=== PATIENT | female | born 1970 | race Caucasian/White ===

== ENCOUNTER 2019-08-06 08:26 | Outpatient (CLI) | payer BC, SELFPAY ==
[2019-08-07 12:03] LABS: COVID-19 RT-PCR UVMMC Result Negative (Negative)
== END 2019-08-06 08:46 ==
PROVIDERS: PCP Physician Assistant Medical; Visit Provider Orthopaedic Surgery
DX: Z11.59 Encounter for screening for other viral diseases (principal); Z01.818 Encounter for other preprocedural examination
CPT/HCPCS: U0003

== ENCOUNTER 2019-08-09 08:29 | Day surgery (SDC) | payer BC, SELFPAY ==
[2019-08-09 08:30] VITALS: BP 106/66; PULSE 62; RESP 16; TEMP 36.4; O2SAT 100
[2019-08-09] MEDS: Lactated Ringers 1,000 ML 80 ML IV (09:20)
[2019-08-09] MEDS: ceFAZolin 1 GM/50 ML BAG IVPB (10:38)
--- NOTE | 2019-08-09 11:03 | PDOC.DSDIS_ITS ---
Discharge Plan Disposition Patient Disposition: HOME Condition: Good Discharge Details Reason For Visit: (L) ECTR Attending Provider: Tenzin Napoles Primary Care Provider: Florencia Henson Home Meds and New Rx's Prescriptions: New hydrocodone-acetaminophen 5-325 mg tablet 1 tab PO Q6H PRN (Reason: pain) Qty: 7 RF: 0 Continued olopatadine [Patanol] 0.1 % drops 1 drp OP DAILY RF: 0 Discharge Instructions Additional Instructions: Elevate L hand above heart level as much as possible overnite tonite. Wiggle fingers L hand 10 times/hour when awake to prevent swelling. Take ibuprofen or tylenol for mild pain. Take hydrocodone for breakthru pain, if needed. After 48 hours, remove splint AND dressings and begin to move L wrist. May then shower and get incision wet. Leave incision uncovered when it is dry and sealed. May use L hand as much as your discomfort allows. Follow up with in 2 weeks. Referrals: Tenzin Napoles MD [ [facility] STAFF PHYSICIAN] - (f/u in 2 weeks) Equipment/Supplies: Splint Activity:: Activity as Tolerated Remove Dressings/Wound Care:: 48 hours Shower/Bathe:: 48 hours Diet:: As Tolerated Discharge Orders Discharge Orders: Discharge Order (Routine); Ordered 08/09/19 Ordered By: Tenzin Napoles DS: Diagnosis Discharge Diagnosis (1) Bilateral carpal tunnel syndrome: Status: Acute
[2019-08-09 11:25] VITALS: BP 125/76; PULSE 56; RESP 16; TEMP 36.2; O2SAT 99
--- NOTE | 2019-08-09 15:31 | W.PM.OP ---
Date of service: 08/09/19 Time of Service: 15:31 Operative Note Operative Note DATE OF PROCEDURE: 08/09/19 PRE-OP DIAGNOSIS: Carpal tunnel syndrome left POST-OP DIAGNOSIS: same PROCEDURE: Endoscopic carpal tunnel release left SURGEON: Tenzin Napoles ANESTHESIA: regional PATHOLOGY: none sent TOURNIQUET TIME: 20 COMPLICATIONS: None Patient was transported to: same day Patient's condition: stable Indications: Is a 48-year-old white female with bilateral carpal tunnel syndrome. Her symptoms are no longer respond to conservative treatment. Bilateral carpal tunnel releases have been advised. Patient prefers to do them sequentially rather than simultaneously. Left is bothering her a little bit more so she wants that side done first. Risk complication procedure explained to patient detail preop. Procedure Description: Patient to the operating room on 08/09/2019 play supine operative table in a IV regional anesthetic was administered to the left upper extremity. Once good anesthesia was obtained the left hand wrist and forearm were prepped and draped in usual sterile fashion. Incision was made in line with the proximal flexion crease of the wrist. Incision began of the flexor carpi radialis and extended to flexor carpi ulnaris. The incision was carried down to the fascia. Subcutaneous veins were cauterized. A distally based fascial flap was then created to gain access to the carpal canal. Synovial reflector was then used to free up any soft tissue attachments to the undersurface of the volar carpal ligament. Series of obturators were then inserted to make room for the endoscope. The Manuel endoscope blade device was then inserted in the canal with and advanced until he distal edge of LIGAMENT was clearly visualized. Care was taken to position the endoscope against the hook of the hamate. When the distal edge was clearly visualized I depressed the trigger elevating ablate. The elevated blade was then brought out from distal to proximal to the incision transecting the volar carpal ligament. The blade was lowered and the endoscope was then inserted in the carpal canal so I could visualize the median nerve falling into the defect created by transecting the volar carpal ligament. This point the wound margins were. .5% Marcaine with epinephrine epinephrine solution. A median nerve block was performed 0.5% Marcaine. Wound was irrigated with saline solution. The wound margins were well approximated with 2 horizontal mattress sutures using 4-0 nylon suture material. Wounds dressed with Xeroform gauze sterile gauze 4 x 4's wrapped with a 4 inch Kerlix bandage and then wrapped in Naseem bandage. A commercial cock up wrist plate was applied over the dressings. Patient's IV regional anesthesia was reversed without complication. She was discharged to recovery room in good condition. Patient was discharged home from the surge unit when fully recovered from her IV regional anesthesia. She is given instructions to elevate her left wrist above heart levels once possible next 48 hours. She is encouraged to wiggle her fingers 10 times an hour while awake to prevent swelling. She is to remove the dressings and splint after 48 hours and begin to move her left wrist. She may then shower and get her incision wet. She can leave the incision uncovered when it is dry and sealed. She may use her left arm as much as discomfort allows. She has been given a prescription for breakthrough pain of oxycodone with APAP 1 tab every 6 hours as needed. She will take ibuprofen or Tylenol for mild pain. Should follow-up with Dr. Napoles in 2 weeks.
== END 2019-08-09 11:40 | disposition home or self-care (01) ==
PROVIDERS: PCP Physician Assistant Medical; Visit Provider Orthopaedic Surgery
PROC: 01N54ZZ Release Median Nerve, Percutaneous Endoscopic Approach (ICD-10-PCS; CPT 29848; principal; 2019-08-09 10:45)
DX: G56.02 Carpal tunnel syndrome, left upper limb (principal)
CPT/HCPCS: 29848; J0690; J1885; L3908

== ENCOUNTER 2019-08-23 06:19 | Day surgery (SDC) | payer BC, SELFPAY ==
--- NOTE | 2019-08-22 22:35 | W.PREOPHP ---
Date of service: 08/23/19 Assessment and Plan Assessment and plan (1) Bilateral carpal tunnel syndrome: Status: Acute Assessment and plan: Right ECTR. Details of surgery were discussed with patient as well as risks and pertinent anatomy. All questions were answered. History of Present Illness History of Present Illness Chief Complaint: Right hand pain and numbness Narrative: Leanne is a 48-year-old female who comes in today for a right ECTR. She had a left ECTR about 2 weeks ago and is doing well. She has had carpal tunnel syndrome symptoms in both hands for multiple years now, but they have gotten worse over the last 7-8 months. Her left hand was most symptomatic, so she elected to have her left wrist ECTR first. She is right-hand dominant, and this was released symptomatic wrist at the time. She continues to have pain and numbness especially with activities including work. Conservative treatment including braces have only helped minimally, but have not significantly improved her symptoms. At this point, she would like to move forward with her right ECTR. Pertinent Surgical Information Patient denies history of hypertension, CVA, RI, angina, asthma, COPD, renal or liver disorders, hepatitis, bleeding disorders, diabetes, immune or thyroid disorders. No complications from anesthesia. Review of Systems Constitutional Constitutional: Denies fever(s) ENT Ears, Nose, Mouth, and Throat: Denies dizziness and Denies sore throat Cardiovascular Cardiovascular: Denies chest pain, Denies palpitations and Denies dyspnea Respiratory Respiratory: Denies cough and Denies dyspnea Gastrointestinal Gastrointestinal: Denies abdominal pain, Denies melena, Denies hematochezia, Denies diarrhea, Denies nausea and Denies vomiting Genitourinary Genitourinary: Denies hematuria and Denies dysuria Neurologic Neurologic: Denies dizziness Endocrine Endocrine: Denies palpitations [facility] Medical History Bilateral carpal tunnel syndrome (Acute) Low back pain (Acute) Surgical History (Updated 08/23/19 @ 06:45 by Fang Guerrero RN) History of tubal ligation (Chronic) Hx of section (Chronic) Social History Smoking/Tobacco Use Status: Never Alcohol Intake: current Alcohol Intake frequency: holidays/special occasions only Alcohol type: wine and hard liquor Drug use: Never Substance use type: does not use current occupation: legal support assistant Do you feel safe at home: Yes Do you feel safe in your relationship?: Yes Meds Home Medications and Allergies Home Medications Medication Instructions Recorded Confirmed Type olopatadine 0.1 % eye drops 1 drp OP DAILY ml 05/20/19 08/23/19 History Allergies Allergy/AdvReac Type Severity Reaction Status Date / Time ketoconazole Allergy Severe Verified 08/23/19 06:46 Exam Const General: cooperative and no acute distress Orientation: alert and awake [facility] Head: normocephalic and atraumatic General nose exam: no nasal discharge Eyes Conjunctivae: conjunctivae normal Sclera: sclerae normal Resp Effort & Inspection: normal respiratory effort Auscultation: clear to auscultation bilaterally and no wheezes Cardio Rate: regular rate Rhythm: regular rhythm Heart Sounds: S1 normal, S2 normal and no murmurs GI Palpation: soft, no hepatosplenomegaly and nontender Auscultation: normal bowel sounds
[2019-08-23 06:25] VITALS: BP 116/78; PULSE 76; RESP 18; TEMP 36.4; O2SAT 99
[2019-08-23] MEDS: Lactated Ringers 1,000 ML 80 ML IV (06:50)
[2019-08-23] MEDS: ceFAZolin 1 GM/50 ML BAG IVPB (07:35)
--- NOTE | 2019-08-23 08:15 | W.PM.DSUDISC ---
Discharge Plan Disposition Patient Disposition: HOME Condition: Good Discharge Details Reason For Visit: R ECTR Attending Provider: Tenzin Napoles Primary Care Provider: Florencia Henson Home Meds and New Rx's Prescriptions: No Action olopatadine [Patanol] 0.1 % drops 1 drp OP DAILY RF: 0 Discharge Instructions Additional Instructions: Elevate R hand above heart level as much as possible overnite tonite. Wiggle fingers R hand 10 times/hour when awake to prevent swelling. Remove splint and dressings in 48 hours and begin to move R wrist. May shower and get incision wet after you remove the dressings in 48 hours. Leave incision uncovered when it is dry and sealed. Use R hand as much as your discomfort allows. Take tylenol or ibuprofen for pain. Follow up with in 2 weeks. Referrals: Tenzin Napoles MD [ [facility] STAFF PHYSICIAN] - (f/u in 2 weeks.) Equipment/Supplies: Splint Activity:: Activity as Tolerated Remove Dressings/Wound Care:: 48 hours Shower/Bathe:: 48 hours Diet:: As Tolerated Discharge Orders Discharge Orders: Discharge Order (Routine); Ordered 08/23/19 Ordered By: Tenzin Napoles DS: Diagnosis Discharge Diagnosis (1) Bilateral carpal tunnel syndrome: Status: Acute
[2019-08-23 08:42] VITALS: BP 116/78; PULSE 76; RESP 18; TEMP 36.4; O2SAT 99
--- NOTE | 2019-08-23 15:29 | W.PM.OP ---
Date of service: 08/23/19 Time of Service: 15:29 Operative Note Operative Note DATE OF PROCEDURE: 08/23/19 PRE-OP DIAGNOSIS: Carpal tunnel syndrome right POST-OP DIAGNOSIS: same PROCEDURE: Right E CTR SURGEON: Tenzin Napoles ANESTHESIA: regional PATHOLOGY: none sent TOURNIQUET TIME: 24 COMPLICATIONS: None Patient was transported to: same day Patient's condition: stable Indications: Is a 48-year-old white female longstanding bilateral carpal tunnel syndrome. She underwent an E CTR on the left 2 weeks ago with excellent results. She now presents for the same procedure on the right side. The risk and complication procedure explained patient detail preop. Procedure Description: Patient taken the operating room on 08/23/2019 she is very supine operating table. IV regional anesthetic was administered the right upper extremity. Right hand wrist and forearm were then prepped and draped in usual sterile fashion. Incision was made in line with the proximal flexion crease of the wrist beginning of the flexor carpi radialis tendon and extending to the flexor carpi ulnaris tendon. Incision was carried down through the skin to the fascia. Subcutaneous veins were cauterized. A distally based fascial flap was then developed to gain access to the carpal canal. Synovial reflector was then used to strip all soft tissue from the undersurface of all carpal ligament. Series of obturators were placed in the carpal canal to make room for the endoscope. The Manuel endoscope blade device was then inserted in the carpal canal. Care was taken to position the the endoscope on the ulnar side of the carpal canal. The endoscope was advanced until the distal edge of the volar carpal ligament was clearly visualized. At this point the trigger was depressed elevating the blade. The elevated blade was then brought out through the incision transecting the volar carpal ligament. The endoscope was then inserted again and the median nerve was visualized falling into the space created by transecting the volar carpal ligament. Using Littler scissors a fasciotomy was performed subcutaneously for about 2 inches proximal to the incision. The wound margins were protected 0.5% Marcaine with epinephrine solution. The median nerve block was performed 0.5% Marcaine solution. The wound was irrigated with saline solution the wound margins were approximated with 2 horizontal mattress sutures of 4-0 nylon suture material. Wounds dressed with Xeroform gauze sterile gauze 4 x 4's wrapped with a Kerlix bandage and then wrapped with an Naseem bandage. She is placed in a commercial cock-up wrist splint. The IV regional anesthesia without complications she was discharged to the day surgery in good condition. Patient was discharged home from day surgery unit and fully recovered from her IV regional anesthetic. She is given instructions to elevate her right hand above heart level as much as possible overnight tonight. She is encouraged to wiggle her fingers 10 times hourly weight prevent swelling. She is to keep her dressings and splint dry and intact for 48 hours. After 48 hours she is to remove her dressings and splint and begin to move her right wrist. She may then shower and get her incision wet. She leave the incision uncovered when is dry and sealed. She can use her right hand is much as discomfort allows. Should take ibuprofen or Tylenol for pain. She will follow-up with Dr. Napoles in 2 weeks.
== END 2019-08-23 08:42 | disposition home or self-care (01) ==
PROVIDERS: PCP Physician Assistant Medical; Visit Provider Orthopaedic Surgery
PROC: 01N54ZZ Release Median Nerve, Percutaneous Endoscopic Approach (ICD-10-PCS; CPT 29848; principal; 2019-08-23 07:30)
DX: G56.01 Carpal tunnel syndrome, right upper limb (principal)
CPT/HCPCS: 29848; NC; J0690; J1885; J2250; L3908

== ENCOUNTER 2019-08-30 09:57 | Emergency (ER) | payer BC, SELFPAY ==
[2019-08-30 10:14] VITALS: BP 118/69; PULSE 78; RESP 18; TEMP 37.2; O2SAT 98
--- NOTE | 2019-08-30 10:28 | W.ED.GENAD ---
Discharge Plan Disposition Patient Disposition: HOME Condition: Stable Discharge Details Chief Complaint: Orthopedic Clinical Impression: Superficial thrombophlebitis Primary Care Provider: Florencia Henson ED Provider: Torres Collado Home Meds and New Rx's Prescriptions: New amoxicillin-pot clavulanate [Augmentin] 875-125 mg tablet 1 tab PO BID Qty: 14 RF: 0 No Action olopatadine [Patanol] 0.1 % drops 1 drp OP DAILY RF: 0 Discharge Instructions Instructions: Superficial Thrombophlebitis (ED) Additional Instructions: you can take 81mg aspirin every 6 hours as needed for discomfort if you have severe worsening pain, fevers or feel more ill return to the emergency department Medical Decision Making 48 yo female had right carpal tunnel release a week ago and IV placed in dorsal left hand. Has had some pain and discomfort in area where IV was placed so came here. Has mild swelling of dorsum of hand with mild pain, no erythema or warmth, no crepitus, normal cap refill and pulses. Suspect superficial thrombophlebitis but will obtain u/s to eval for possible dvt pt prefers to start asapirin and antibiotics and returning for u/s as outpatient which I feel is reasonable given only local swelling to dorsum of hand. Will d/c with return precautions Differential Diagnosis Differential Diagnosis: superficial thrombophlebitis, dvt HPI General Mode of arrival: ambulatory. Date/Time Provider Initiated Documentation: 08/30/19 10:21. Limitations to Documentation: no limitations. Information obtained by: patient. History of Present Illness 48 year old F presents to the emergency department with the chief complaint of hand swelling pain, left, described as moderate, and it has been constant. No relieving factors improve symptom(s), No exacerbating factors reported . Patient did receive the following treatments prior to arrival, none Related Data Home Medications Medication Instructions Recorded Confirmed olopatadine 0.1 % eye drops 1 drp OP DAILY ml 05/20/19 08/30/19 amoxicillin-pot clavulanate 1 tab PO BID #14 tab 08/30/19 [Augmentin] Previous Rx's Medication Instructions Recorded amoxicillin-pot clavulanate 1 tab PO BID #14 tab 08/30/19 [Augmentin] Allergies Allergy/AdvReac Type Severity Reaction Status Date / Time ketoconazole Allergy Severe Verified 08/30/19 10:27 General Stated Complaint: Orthopedic DOROTHY: 4 Review of Systems All systems reviewed & are unremarkable except as noted in HPI and below Constitutional Constitutional: Denies chills, Denies fever(s) and Denies weakness Cardiovascular Cardiovascular: Denies chest pain and Denies dyspnea Respiratory Respiratory: Denies cough and Denies dyspnea Gastrointestinal Gastrointestinal: Denies abdominal pain, Denies nausea and Denies vomiting Neurologic Neurologic: Denies weakness Psychiatric Psychiatric: Denies depression [facility] Medical History (Updated 08/30/19 @ 10:53 by Torres Collado MD) Bilateral carpal tunnel syndrome (Acute) Low back pain (Acute) Surgical History (Updated 08/23/19 @ 06:45 by Fang Guerrero RN) History of tubal ligation (Chronic) Hx of section (Chronic) Social History Smoking/Tobacco Use Status: Never Alcohol Intake: current Alcohol Intake frequency: holidays/special occasions only Alcohol type: wine and hard liquor Drug use: Never Substance use type: does not use current occupation: complex commercial litigation paralegal Do you feel safe at home: Yes Do you feel safe in your relationship?: Yes Exam Const General: no acute distress Orientation: alert HENMT Head: normal to inspection Ears: external ears normal General nose exam: external nose normal Mouth: moist mucous membranes Eyes General: appearance normal, both eyes and all related structures Neck Neck: normal visual inspection Resp Effort & Inspection: normal respiratory effort and able to speak in complete sentences Cardio Rate: regular rate Skin General skin exam: no rashes or lesions noted Neuro General: patient alert and patient oriented x3 Extrem General: full ROM and capillary refill normal Psych Mental Status: mental status grossly normal Course Vital Signs Vital signs: Vital Signs Temperature 37.2 C 08/30/19 10:14 Pulse 78 08/30/19 10:14 Respiratory Rate 18 08/30/19 10:14 Blood Pressure 118/69 08/30/19 10:14 Pulse Oximetry 98 08/30/19 10:14 Temperature 37.2 C 08/30/19 10:14 Temperature Source Skin 08/30/19 10:14 Pulse 78 08/30/19 10:14 Respiratory Rate 18 08/30/19 10:14 Respiratory Effort Non-Labored 08/30/19 10:24 Blood Pressure 118/69 08/30/19 10:14 Pulse Oximetry 98 08/30/19 10:14 Oxygen Delivery Method Room Air 08/30/19 10:14 Oxygen Flow Rate 0 08/30/19 10:14 Pain Level 1 08/30/19 10:26 Comment 08/30/19 10:14
== END 2019-08-30 11:02 | disposition home or self-care (01) ==
PROVIDERS: Emergency Provider Emergency Medicine; PCP Physician Assistant Medical
DX: T81.72XA Complication of vein following a procedure, not elsewhere classified, initial encounter (principal); Y84.8 Other medical procedures as the cause of abnormal reaction of the patient, or of later complication, without mention of misadventure at the time of the procedure
CPT/HCPCS: 99283

== ENCOUNTER 2019-08-31 00:40 | Outpatient (CLI) | payer BC, SELFPAY ==
--- NOTE | 2019-08-31 10:30 | DI.US_ITS ---
EXAM: US UPPER EXTREMITY VENOUS LT CLINICAL HISTORY: RECENT IV PLACED,NOW SWELLING AND PAIN TECHNIQUE: Ultrasound performed using standard protocol. COMPARISON: No exams were available for comparison FINDINGS: Duplex evaluation of the deep venous system of the left upper extremity was performed according to e usual protocol. There is no evidence of deep venous thrombosis. No superficial thrombus identifie d in the upper arm.. A small superficial vein in forearm shows increased internal echoes which could represent localized superficial thrombophlebitis. IMPRESSION: No evidence of deep venous thrombosis. DATA REPOSITORY:
== END 2019-08-31 01:00 ==
PROVIDERS: PCP Physician Assistant Medical; Visit Provider Emergency Medicine
DX: R22.32 Localized swelling, mass and lump, left upper limb (principal); M79.602 Pain in left arm
CPT/HCPCS: 93971

== ENCOUNTER 2019-08-31 10:45 | Emergency (ER) | payer BC, SELFPAY ==
[2019-08-31 10:46] VITALS: BP 116/72; PULSE 68; RESP 18; TEMP 36.6; O2SAT 100
--- NOTE | 2019-08-31 10:51 | ED.GENADUL_ITS ---
Discharge Plan Disposition Patient Disposition: HOME Condition: Stable Discharge Details Chief Complaint: Recheck Clinical Impression: Superficial thrombophlebitis Primary Care Provider: Florencia Henson ED Provider: Shira Medrano Home Meds and New Rx's Prescriptions: Continued olopatadine [Patanol] 0.1 % drops 1 drp OP DAILY RF: 0 amoxicillin-pot clavulanate [Augmentin] 875-125 mg tablet 1 tab PO BID Qty: 14 RF: 0 Discharge Instructions Instructions: Superficial Thrombophlebitis (ED) Additional Instructions: Take the antibiotics until finished. Apply ice or heat to the affected area several times daily for 20 minutes at a time. Follow-up with your primary care doctor in 1 week as needed. Return to the emergency department with any worsening or new concerning symptoms. Discharge Data Discharge Date/Time-TO BE ENTERED AT DEPARTURE: 08/31/19 11:08 Discharge Physician: Shira Medrano Medical Decision Making 48-year-old female status post right carpal tunnel release requiring IV placement in left hand diagnosed with superficial thrombophlebitis yesterday presents for results of her Doppler ultrasound to rule out DVT. Ultrasound negative. Left hand hematoma appears faint and resolving. No signs of cellulitis. Neurov ascular intact. Advised to finish the antibiotics prescribed yesterday. Advised on the importance of alternating ice and heat. Advised to follow up with the primary care doctor for re-evaluation as needed. Usual and customary return precautions given prior to discharge. Imaging Data Radiologic Study: Radiologist's impression: US UPPER EXTREMITY VENOUS LT CLINICAL HISTORY: RECENT IV PLACED,NOW SWELLING AND PAIN TECHNIQUE: Ultrasound performed using standard protocol. COMPARISON: No exams were available for comparison FINDINGS: Duplex evaluation of the deep venous system of the left upper extremity was performed according to the usual protocol. There is no evidence of deep venous thrombosis. No superficial thrombus identified in the upper arm.. A small superficial vein in forearm shows increased internal echoes which could represent localized superficial thrombophlebitis. IMPRESSION: No evidence of deep venous thrombosis. HPI General Mode of arrival: ambulatory . Date/Time Provider Initiated Documentation: 08/31/19 10:47 . Limitations to Documentation: no limitations . Information obtained by: patient . HPI Narrative: Patient is a 48-year-old female status post IV placement to left hand at time of right carpal tunnel release with Dr. Napoles last week seen here yesterday and diagnosed with superficial thrombophlebitis and referred for outpatient Doppler ultrasound of left upper extremity rule out DVT presents for results of ultrasound. Ultrasound read as negative per radiology. Patient states her symptoms of left hand swelling and bruising are improving. She denies any fever or significant pain. Related Data Home Medications Medication Instructions Recorded Confirmed olopatadine 0.1 % eye drops 1 drp OP DAILY ml 05/20/19 08/31/19 amoxicillin-pot clavulanate 1 tab PO BID #14 tab 08/30/19 08/31/19 [Augmentin] Previous Rx's Medication Instructions Recorded amoxicillin-pot clavulanate 1 tab PO BID #14 tab 08/30/19 [Augmentin] Allergies Allergy/AdvReac Type Severity Reaction Status Date / Time ketoconazole Allergy Severe Verified 08/31/19 10:50 General Stated Complaint: Recheck DOROTHY: 5 Review of Systems All systems reviewed & are unremarkable except as noted in HPI and below Constitutional Constitutional: Reports as per HPI, Denies chills and Denies fever(s) Eyes Eyes: Denies blurry vision ENT Ears, Nose, Mouth, and Throat: Denies dizziness, Denies sore throat and Denies throat swelling Cardiovascular Cardiovascular: Denies chest pain and Denies dyspnea Respiratory Respiratory: Denies cough and Denies dyspnea Gastrointestinal Gastrointestinal: Denies abdominal pain, Denies diarrhea and Denies vomiting Genitourinary Genitourinary: Denies hematuria and Denies dysuria Musculoskeletal Musculoskeletal: Denies back pain and Denies numbness Integumentary/Breasts Skin/Breast: Denies lesions and Denies rash Neurologic Neurologic: Denies dizziness, Denies localized weakness and Denies numbness Allergic/Immunologic Allergic/Immunologic: Denies throat swelling COUNTS INCLUDE 234 BEDS AT THE [facility] Medical History (Updated 08/31/19 @ 11:05 by Shira Medrano DO) Bilateral carpal tunnel syndrome (Acute) Low back pain (Acute) Surgical History (Updated 08/23/19 @ 06:45 by Fang Guerrero RN) History of tubal ligation (Chronic) Hx of section (Chronic) Social History Smoking/Tobacco Use Status: Never Alcohol Intake: current Alcohol Intake frequency: holidays/special occasions on ly Alcohol type: wine and hard liquor Drug use: Never Substance use type: does not use current occupation: corporate legal assistant Do you feel safe at home: Yes Do you feel safe in your relationship?: Yes Exam Const General: cooperative, healthy appearing and no acute distress HENMS Head: normal to inspection Mouth: oral mucosae normal Eyes General: appearance normal, both eyes and all related structures Neck Neck: normal visual inspection Resp Effort & Inspection: normal respiratory effort and able to speak in complete sentences Cardio Rate: regular rate Skin General skin exam: no rashes or lesions noted Neuro General: patient alert, patient awake and patient oriented x3 Motor: muscle tone normal throughout Extrem Hand/finger images: 1. Faint hematoma. No tenderness, fluctuance, induration, erythema. Other: B/l radial pulses intact. Psych Appearance: grossly normal Affect: normal affect Course Vital Signs Vital signs: Vital Signs Temperature 97.9 F 08/31/19 10:46 Pulse 68 08/31/19 10:46 Respiratory Rate 18 08/31/19 10:46 Blood Pressure 116/72 08/31/19 10:46 Pulse Oximetry 100 08/31/19 10:46 Temperature 97.9 F 08/31/19 10:46 Temperature Source Temporal Artery Scan 08/31/19 10:46 Pulse 68 08/31/19 10:46 Respiratory Rate 18 08/31/19 10:46 Respiratory Effort Non-Labored 08/31/19 10:50 Blood Pressure 116/72 08/31/19 10:46 Blood Pressure Position Sitting 08/31/19 10:46 Pulse Oximetry 100 08/31/19 10:46 Oxygen Delivery Method Room Air 08/31/19 10:46 Oxygen Flow Rate 0 08/31/19 10:46
== END 2019-08-31 11:08 | disposition home or self-care (01) ==
LOC: ER 11:08
PROVIDERS: Emergency Provider Physician Assistant; PCP Physician Assistant Medical
DX: T81.72XA Complication of vein following a procedure, not elsewhere classified, initial encounter (principal); Y84.8 Other medical procedures as the cause of abnormal reaction of the patient, or of later complication, without mention of misadventure at the time of the procedure; Z71.2 Person consulting for explanation of examination or test findings

== ENCOUNTER 2020-08-02 10:08 | Outpatient (REF) | payer BC, SELFPAY ==
[2020-08-02 15:42] LABS: Abs Immature Grans 0.02 10^3/uL (0.0-0.06); Absolute Basophil Count 0.03 10^3/uL (0.0-0.2); Absolute Eosinophil Count 0.09 10^3/uL (0.0-0.7); Absolute Lymphocyte Count 1.03 10^3/uL (1.2-3.4); Absolute Neutrophil Count 4.29 10^3/uL (1.2-6.7); Basophils % 0.5; Eosinophils % 1.4; HCT 38.1 % (36.0-46.0); HGB 12.5 g/dL (11.2-15.7); Immature Grans % 0.3; Lymphocytes % 16.2; MCH 30.3 pg (27.0-33.0); MCHC 32.8 % (32.0-36.0); MCV 92.5 fL (80-95); MPV 12.2 fL (8.0-11.0); Monocytes % 14.2; Neutrophils % 67.4; Nucleated RBC 0 %; Platelet Count 248 10^3/uL (130-400); RBC 4.12 10^6/uL (3.93-5.22); RDW 12.7 % (11.7-14.6); RDW-SD 43.4 fL; WBC 6.36 10^3/uL (4.4-10.8)
[2020-08-02 15:46] LABS: ESR 27 mm/hr (0-20)
[2020-08-02 15:57] LABS: C-Reactive Protein 0.31 mg/dL (0.0-0.3)
[2020-08-03 09:06] LABS: Cyclic Citrullinated Peptide 133.9 U/mL (<5.0)
[2020-08-03 09:47] LABS: Lyme Ab w Rflx to Lyme Confirm Negative (Negative)
[2020-08-03 13:36] LABS: Uric Acid 2.3 mg/dL (2.6-6.0)
[2020-08-05 09:25] LABS: Anaplasma phagocytophilum Negative (Negative); B. miyamotoi PCR Negative (Negative); Babesia divergens/MO-1 Negative (Negative); Babesia duncani Negative (Negative); Babesia microti Negative (Negative); Ehrlichia chaffeensis Negative (Negative); Ehrlichia ewingii/canis Negative (Negative); Ehrlichia muris eauclairensis Negative (Negative)
== END 2020-08-02 10:09 | disposition home or self-care (01) ==
LOC: NCHCN 10:08
PROVIDERS: PCP Physician Assistant Medical; Visit Provider Physician Assistant Medical
DX: M25.561 Pain in right knee (principal); M25.562 Pain in left knee
CPT/HCPCS: 85652; 86200; 87798; 84550; 85025; 86140; 86618

== ENCOUNTER 2020-08-29 10:59 | Outpatient (CLI) | payer BC, SELFPAY ==
--- NOTE | 2020-08-29 10:30 | DI.RAD_ITS ---
Exam(s) XR KNEE LT 3V AP,LAT,JOSELIN EXAM: XR KNEE LT 3V AP,LAT,JOSELIN CLINICAL HISTORY: left knee pain TECHNIQUE: COMPARISON: No exams were available for comparison FINDINGS: Three views were obtained. The cartilaginous joint spaces appear fairly well maintained. No bony or soft tissue abnormality seen. No gross knee joint effusion seen lateral view. IMPRESSION: RADIATION DOSE DELIVERED: Total DLP
== END 2020-08-29 11:00 | disposition home or self-care (01) ==
LOC: DIORS 11:00
PROVIDERS: PCP Physician Assistant Medical; Referring Provider Physician Assistant Medical; Visit Provider Student in an Organized Health Care Education/Training Program
DX: M25.562 Pain in left knee (principal)
CPT/HCPCS: 73562

== ENCOUNTER 2020-09-13 15:18 | Outpatient (REF) | payer BC, SELFPAY ==
[2020-09-13 15:20] LABS: BUN 12 mg/dL (7-18); CREATININE 0.7 mg/dL (0.55-1.02); Calcium 10.5 mg/dL (8.5-10.1); Calculated LDL 173 mg/dL (<100); Chloride 103 mmol/L (98-107); Cholesterol 289 mg/dL (<200); Glucose 94 mg/dL (74-106); HDL Cholesterol 94 mg/dL (40-60); Potassium 4.5 mmol/L (3.5-5.1); Sodium 140 mmol/L (136-145); TSH (W/Ref FT4) 1.45 uIU/mL (0.36-3.74); Triglyceride 112 mg/dL (<150)
== END 2020-09-13 15:19 | disposition home or self-care (01) ==
LOC: NCHCN 15:18
PROVIDERS: PCP Physician Assistant Medical; Visit Provider Physician Assistant Medical
DX: Z00.00 Encounter for general adult medical examination without abnormal findings (principal)
CPT/HCPCS: 80048; 80061; 84443

== ENCOUNTER 2020-10-31 05:12 | Outpatient (CLI) | payer BC, SELFPAY ==
[2020-10-31 16:37] LABS: Abs Immature Grans 0.01 10^3/uL (0.0-0.06); Absolute Basophil Count 0.06 10^3/uL (0.0-0.2); Absolute Eosinophil Count 0.12 10^3/uL (0.0-0.7); Absolute Lymphocyte Count 2.23 10^3/uL (1.2-3.4); Absolute Monocyte Count 0.82 10^3/uL (0.1-0.8); Absolute Neutrophil Count 4.17 10^3/uL (1.2-6.7); Basophils % 0.8; Eosinophils % 1.6; HCT 38.1 % (36.0-46.0); HGB 12.6 g/dL (11.2-15.7); Immature Grans % 0.1; Lymphocytes % 30.1; MCH 29.9 pg (27.0-33.0); MCHC 33.1 % (32.0-36.0); MCV 90.3 fL (80-95); MPV 10.7 fL (8.0-11.0); Monocytes % 11.1; Neutrophils % 56.3; Nucleated RBC 0 %; Platelet Count 266 10^3/uL (130-400); RBC 4.22 10^6/uL (3.93-5.22); RDW 13.3 % (11.7-14.6); RDW-SD 43.5 fL; WBC 7.41 10^3/uL (4.4-10.8)
[2020-10-31 17:22] LABS: ALT 33 U/L (14-59); AST 38 U/L (15-37); CREATININE 0.8 mg/dL (0.55-1.02)
== END 2020-10-31 05:13 | disposition home or self-care (01) ==
LOC: LBO 05:12
PROVIDERS: PCP Physician Assistant Medical; Visit Provider Internal Medicine Rheumatology
DX: M05.9 Rheumatoid arthritis with rheumatoid factor, unspecified (principal)
CPT/HCPCS: 36415; 82565; 84450; 84460; 85025

== ENCOUNTER 2021-02-12 03:06 | Outpatient (CLI) | payer BC, SELFPAY ==
[2021-02-12 16:41] LABS: Abs Immature Grans 0.01 10^3/uL (0.0-0.06); Absolute Basophil Count 0.07 10^3/uL (0.0-0.2); Absolute Eosinophil Count 0.21 10^3/uL (0.0-0.7); Absolute Lymphocyte Count 1.32 10^3/uL (1.2-3.4); Absolute Monocyte Count 0.67 10^3/uL (0.1-0.8); Absolute Neutrophil Count 1.79 10^3/uL (1.2-6.7); Basophils % 1.7; Eosinophils % 5.2; HCT 37.5 % (36.0-46.0); HGB 11.7 g/dL (11.2-15.7); Immature Grans % 0.2; Lymphocytes % 32.4; MCH 29.1 pg (27.0-33.0); MCHC 31.2 % (32.0-36.0); MCV 93.3 fL (80-95); MPV 10.6 fL (8.0-11.0); Monocytes % 16.5; Nucleated RBC 0 %; Platelet Count 207 10^3/uL (130-400); RBC 4.02 10^6/uL (3.93-5.22); RDW 13.1 % (11.7-14.6); RDW-SD 44.8 fL; WBC 4.07 10^3/uL (4.4-10.8)
[2021-02-12 17:40] LABS: ALT 67 U/L (14-59); AST 78 U/L (15-37); Albumin 3.7 g/dL (3.4-5.0); Alkaline Phosphatase 206 U/L (46-116); Anion Gap 7.1 mmol/L (3-11); BUN 8 mg/dL (7-18); Bilirubin, Total 0.6 mg/dL (0.2-1.0); CO2 27.9 mmol/L (21.0-32.0); CREATININE 0.6 mg/dL (0.55-1.02); Calcium 9.9 mg/dL (8.5-10.1); Chloride 99 mmol/L (98-107); Glucose 113 mg/dL (74-106); Potassium 3.8 mmol/L (3.5-5.1); Sodium 134 mmol/L (136-145)
== END 2021-02-12 03:07 | disposition home or self-care (01) ==
LOC: LBO 03:06
PROVIDERS: PCP Physician Assistant Medical; Visit Provider Physician Assistant
DX: Z51.81 Encounter for therapeutic drug level monitoring (principal)
CPT/HCPCS: 36415; 80053; 85025

== ENCOUNTER 2022-01-08 03:28 | Outpatient (CLI) | payer BC, SELFPAY ==
[2022-01-08 12:49] LABS: Abs Immature Grans 0.02 10^3/uL (0.0-0.06); Absolute Basophil Count 0.05 10^3/uL (0.0-0.2); Absolute Eosinophil Count 0.08 10^3/uL (0.0-0.7); Absolute Monocyte Count 1.16 10^3/uL (0.1-0.8); Absolute Neutrophil Count 4.92 10^3/uL (1.2-6.7); Basophils % 0.6; HCT 35.2 % (36.0-46.0); HGB 11.3 g/dL (11.2-15.7); Immature Grans % 0.3; Lymphocytes % 20.4; MCH 26.7 pg (27.0-33.0); MCHC 32.1 % (32.0-36.0); MCV 83 fL (80-95); MPV 9.6 fL (8.0-11.0); Monocytes % 14.8; Neutrophils % 62.9; Platelet Count 325 10^3/uL (130-400); RBC 4.24 10^6/uL (3.93-5.22); RDW 14.4 % (11.7-14.6); RDW-SD 43.1 fL; WBC 7.83 10^3/uL (4.4-10.8)
[2022-01-08 12:50] LABS: ESR 57 mm/hr (0-30)
[2022-01-08 14:21] LABS: ALT 32 U/L (14-59); AST 34 U/L (15-37); Albumin 3.3 g/dL (3.4-5.0); Alkaline Phosphatase 165 U/L (46-116); Anion Gap 9.1 mmol/L (3-11); BUN 9 mg/dL (7-18); Bilirubin, Total 0.5 mg/dL (0.2-1.0); C-Reactive Protein 3.16 mg/dL (0.0-0.3); CO2 26.9 mmol/L (21.0-32.0); CREATININE 0.7 mg/dL (0.55-1.02); Calcium 10.3 mg/dL (8.5-10.1); Chloride 101 mmol/L (98-107); Estimated GFR 104.65 (mL/min/1.73m2); Glucose 114 mg/dL (74-106); Potassium 3.6 mmol/L (3.5-5.1); Sodium 137 mmol/L (136-145); Total Protein 8.3 g/dL (6.4-8.2)
[2022-01-10 13:36] LABS: ANA Interpretation Positive (Negative); ANA Titer Pattern 1:320 Homogeneous
[2022-01-10 13:59] LABS: dsDNA Ab, IgG 14.1 IU/mL (<30.0)
[2022-01-10 14:34] LABS: Hepatitis B Surface Ag Negative (Negative)
[2022-01-10 14:52] LABS: Hepatitis C Ab w Rflx HCV PCR Negative (Negative)
[2022-01-10 15:17] LABS: RNP Ab, IgG 1.6 Units (<20.0); SS-A Antibody 1.1 Units (<20.0); SS-B (La) Ab, IgG 2.3 Units (<20.0); Sm (Smith) Ab, IgG 2.2 Units (<20.0)
[2022-01-11 11:19] LABS: Hepatitis B Surface Ab Positive (See Note)
[2022-01-11 11:59] LABS: Hep B Core Antibody Negative (Negative)
== END 2022-01-08 03:29 | disposition home or self-care (01) ==
LOC: LBO 03:28
PROVIDERS: PCP Physician Assistant Medical; Visit Provider Physician Assistant
DX: Z51.81 Encounter for therapeutic drug level monitoring (principal)
CPT/HCPCS: 36415; 80053; 85652; 86704; 86706; 86803; 87340; 85025; 86038; 86140; 86225; 86235

== ENCOUNTER 2022-03-05 03:59 | Outpatient (CLI) | payer BC, SELFPAY ==
[2022-03-05 16:46] LABS: Abs Immature Grans 0.04 10^3/uL (0.0-0.06); Absolute Basophil Count 0.05 10^3/uL (0.0-0.2); Absolute Eosinophil Count 0.15 10^3/uL (0.0-0.7); Absolute Lymphocyte Count 2.22 10^3/uL (1.2-3.4); Absolute Monocyte Count 1.03 10^3/uL (0.1-0.8); Absolute Neutrophil Count 3.72 10^3/uL (1.2-6.7); Basophils % 0.7; Eosinophils % 2.1; HCT 31.8 % (36.0-46.0); HGB 9.7 g/dL (11.2-15.7); Immature Grans % 0.6; Lymphocytes % 30.8; MCH 25.3 pg (27.0-33.0); MCHC 30.5 % (32.0-36.0); MCV 83 fL (80-95); MPV 9.2 fL (8.0-11.0); Monocytes % 14.3; Neutrophils % 51.5; Platelet Count 405 10^3/uL (130-400); RBC 3.83 10^6/uL (3.93-5.22); RDW 13.8 % (11.7-14.6); RDW-SD 41.8 fL; WBC 7.21 10^3/uL (4.4-10.8)
[2022-03-05 17:28] LABS: ALT 21 U/L (14-59); AST 27 U/L (15-37); Albumin 2.9 g/dL (3.4-5.0); Alkaline Phosphatase 132 U/L (46-116); Anion Gap 4.4 mmol/L (3-11); BUN 10 mg/dL (7-18); Bilirubin, Total 0.2 mg/dL (0.2-1.0); CO2 30.6 mmol/L (21.0-32.0); CREATININE 0.7 mg/dL (0.55-1.02); Calcium 9.7 mg/dL (8.5-10.1); Chloride 105 mmol/L (98-107); Estimated GFR 104.65 (mL/min/1.73m2); Glucose 83 mg/dL (74-106); Potassium 3.9 mmol/L (3.5-5.1); Sodium 140 mmol/L (136-145); Total Protein 7.1 g/dL (6.4-8.2)
[2022-03-08 12:37] LABS: RNP Ab, IgG 1.7 Units (<20.0); SS-A Antibody 1.1 Units (<20.0); SS-B (La) Ab, IgG 3.8 Units (<20.0); Sm (Smith) Ab, IgG 2.2 Units (<20.0)
== END 2022-03-05 04:00 | disposition home or self-care (01) ==
PROVIDERS: PCP Physician Assistant Medical; Visit Provider Physician Assistant
DX: Z51.81 Encounter for therapeutic drug level monitoring (principal)
CPT/HCPCS: 36415; 80053; 85025; 86235

== ENCOUNTER 2022-04-08 02:01 | Outpatient (CLI) | payer BC, SELFPAY ==
--- NOTE | 2022-04-08 | DI.MAMMO_ITS ---
Exam(s) MAMMO SCREENING EXAM: MAMMO SCREENING CLINICAL HISTORY: SCREENING, Z12.31 TECHNIQUE: Bilateral full field digital CC and MLO mammographic images were obtained with 3D tomosyn thesis and utilizing computer aided detection (CAD). COMPARISON: None. FINDINGS: Masses/Architectural Distortion: There is a well-circumscribed ovoid nodule in the upper outer quadra nt of the left breast measuring 5 mm. It is 5.5 cm from the nipple. Microcalcifications: No suspicious pleomorphic-type are seen. Skin Thickening/Nipple Retraction: None. IMPRESSION: 1. 5 mm nodule in the left breast as described above. 2. This area should be further evaluated with spot compression view. A limited left breast ultrasoun d should also be obtained at that time. BI-RADS Category 0 - Assessment Incomplete: Need additional imaging evaluation Breast Density - Category C - Heterogeneously dense Breast density category C or D implies that the patient has dense breast tissue. Dense breast tissue is very common and is not abnormal but dense breast tissue can make it harder to find cancer on a ma mmogram. Also, dense breast tissue may increase their breast cancer risk. This information about the result of the mammogram report was provided to the patient to raise their awareness. Use this report when you speak with the patient about their risks for breast cancer, which includes their family hist ory. At that time, you may recommend for more screening tests (Ultrasound or MRI) as they might be us eful based on their risk. A negative radiographic report should not delay biopsy if a dominant or clinically suspicious mass is present. Up to ten percent of cancers are not identified on mammography. A negative report may reinforce clinical impression. Adenosis and dense breasts may obscure an underlying neoplasm. False positive reports average 6 to 10%. Patient will receive a letter notifying them of these results.
== END 2022-04-08 02:21 ==
LOC: DI 02:02
PROVIDERS: PCP Physician Assistant Medical; Visit Provider Physician Assistant Medical
DX: Z12.31 Encounter for screening mammogram for malignant neoplasm of breast (principal); R92.8 Other abnormal and inconclusive findings on diagnostic imaging of breast
CPT/HCPCS: 77063; 77067

== ENCOUNTER 2022-04-16 02:23 | Outpatient (CLI) | payer BC, SELFPAY ==
--- NOTE | 2022-04-16 | DI.US_ITS ---
Exam(s) MG MAMMO SCREEN CALL BACK UNI US BREAST LT COMPLETE EXAM: MG MAMMO SCREEN CALL BACK UN- LEFT AND COMPLETE LEFT BREAST ULTRASOUND CLINICAL HISTORY: F/U MAMMO, LT BREAST NODULE,R92.8. TECHNIQUE: Unilateral spot mammographic images obtained with 3D tomosynthesisand utilizing computer aided detection (CAD). . Complete LEFT breast Ultrasound was also performed, including all 4 quadrants, the retroareolar regio n, and the ipsilateral axilla. COMPARISON: Prior mammograms were reviewed. This additional imaging was performed due to findings described on the recent screening mammogram of 04/08/2022. FINDINGS: DIAGNOSTIC MAMMOGRAM: Additional mammographic views performed todayagain exhibit the previously described nodule. It does not dissipate. It appears to be superficial. However, patient does not a skin mole at this location . COMPLETE LEFT BREAST ULTRASOUND: Ultrasound performed today reveals multiple microcysts at the 1 o'clock position. The largest of the se measures 10 x 6 millimeters. There is also conglomeration of microcysts in this region also evide nt. At 3 o'clock position there is a 6 x 3 millimeter benign microcyst. At the 4 o'clock position there are 2 wider than taller microcysts. One measures 4 millimeters and the other measures 6 millimeters and appears mildly hemorrhagic. There are no additional ultrasound findings in all 4 quadrants. Scanning of the ipsilateral left axilla reveals no significant adenopathy. IMPRESSION: 1. Benign-appearing findings in left breast as described above. 2. Multiple benign-appearing microcysts evident on ultrasound. A few of these are located 4 o'clock position and 1 of these may correspond to the finding on the mammogram. However, the finding on the mammogram is by superficial but the patient does not appear to have a skin mole at location on physi marian examination. Appropriate follow-up as discussed by myself with the patient today is repeat left breast imaging in 6 months to include repeat mammogram and ultrasound. The patient was informed of these findings and recommendations prior to leaving the department today. BI-RADS Category 3 - 6 month - Probably Benign Finding: Recommend follow-up mammography in 6 months Breast Density - Category C - Heterogeneously dense Breast density Category C or D implies that the patient has dense breast tissue. Dense breast tissue can make it harder to find cancer on a mammogram. Dense breast tissue is also associated with an incr eased risk of breast cancer. This information about the result of the mammogram report was provided to the patient to raise their awareness. Use this report when you speak with the patient about their risks for breast cancer, which includes their family history. At that time, you may recommend additional screening tests (Ultrasoun d or MRI) as these tests may add significant information. A negative radiographic report should not delay biopsy if a dominant or clinically suspicious mass is present. Up to ten percent of cancers are not identified on mammography. A negative report may reinforce clinical impression. Adenosis and dense breasts may obscure an underlying neoplasm. False positive reports average 6 to 10%. Patient will receive a letter notifying them of these results.
== END 2022-04-16 02:43 ==
LOC: DI 02:24
PROVIDERS: PCP Physician Assistant Medical; Visit Provider Physician Assistant Medical
DX: Z12.31 Encounter for screening mammogram for malignant neoplasm of breast (principal); R92.8 Other abnormal and inconclusive findings on diagnostic imaging of breast
CPT/HCPCS: 76642; 77063; 77067

== ENCOUNTER 2022-05-06 02:42 | Outpatient (CLI) | payer BC, SELFPAY ==
[2022-05-06 15:33] LABS: Abs Immature Grans 0.02 10^3/uL (0.0-0.06); Absolute Basophil Count 0.06 10^3/uL (0.0-0.2); Absolute Eosinophil Count 0.11 10^3/uL (0.0-0.7); Absolute Lymphocyte Count 2.42 10^3/uL (1.2-3.4); Absolute Monocyte Count 0.98 10^3/uL (0.1-0.8); Absolute Neutrophil Count 3.14 10^3/uL (1.2-6.7); Basophils % 0.9; Eosinophils % 1.6; HCT 33.5 % (36.0-46.0); HGB 10.3 g/dL (11.2-15.7); Immature Grans % 0.3; MCH 25.1 pg (27.0-33.0); MCHC 30.7 % (32.0-36.0); MCV 82 fL (80-95); MPV 9.2 fL (8.0-11.0); Monocytes % 14.6; Neutrophils % 46.6; Platelet Count 306 10^3/uL (130-400); RDW 14.7 % (11.7-14.6); RDW-SD 44.1 fL; WBC 6.73 10^3/uL (4.4-10.8)
[2022-05-06 16:03] LABS: ALT 30 U/L (14-59); AST 39 U/L (15-37); Albumin 3.2 g/dL (3.4-5.0); Alkaline Phosphatase 157 U/L (46-116); BUN 8 mg/dL (7-18); Bilirubin, Total 0.4 mg/dL (0.2-1.0); CREATININE 0.6 mg/dL (0.55-1.02); Calcium 10.2 mg/dL (8.5-10.1); Chloride 99 mmol/L (98-107); Estimated GFR 108.61 (mL/min/1.73m2); Glucose 100 mg/dL (74-106); Potassium 3.3 mmol/L (3.5-5.1); Sodium 134 mmol/L (136-145); Total Protein 7.7 g/dL (6.4-8.2)
== END 2022-05-06 02:43 | disposition home or self-care (01) ==
PROVIDERS: PCP Physician Assistant Medical; Visit Provider Physician Assistant
DX: Z51.81 Encounter for therapeutic drug level monitoring (principal)
CPT/HCPCS: 36415; 80053; 85025

== ENCOUNTER 2022-06-03 02:34 | Outpatient (CLI) | payer BC, SELFPAY ==
[2022-06-03 15:58] LABS: Abs Immature Grans 0.01 10^3/uL (0.0-0.06); Absolute Basophil Count 0.06 10^3/uL (0.0-0.2); Absolute Eosinophil Count 0.17 10^3/uL (0.0-0.7); Absolute Lymphocyte Count 2.22 10^3/uL (1.2-3.4); Absolute Monocyte Count 0.93 10^3/uL (0.1-0.8); Absolute Neutrophil Count 3.41 10^3/uL (1.2-6.7); Basophils % 0.9; Eosinophils % 2.5; HCT 32.6 % (36.0-46.0); HGB 10.1 g/dL (11.2-15.7); Immature Grans % 0.1; Lymphocytes % 32.6; MCH 25.1 pg (27.0-33.0); MCV 81 fL (80-95); MPV 10.2 fL (8.0-11.0); Monocytes % 13.7; Neutrophils % 50.2; Platelet Count 279 10^3/uL (130-400); RBC 4.02 10^6/uL (3.93-5.22); RDW 14.6 % (11.7-14.6); RDW-SD 43.4 fL
[2022-06-03 16:43] LABS: ALT 24 U/L (14-59); AST 24 U/L (15-37); Albumin 3.1 g/dL (3.4-5.0); Alkaline Phosphatase 131 U/L (46-116); Anion Gap 6.9 mmol/L (3-11); BUN 11 mg/dL (7-18); Bilirubin, Total 0.1 mg/dL (0.2-1.0); CO2 26.1 mmol/L (21.0-32.0); CREATININE 0.6 mg/dL (0.55-1.02); Calcium 9.6 mg/dL (8.5-10.1); Chloride 102 mmol/L (98-107); Estimated GFR 108.61 (mL/min/1.73m2); Glucose 82 mg/dL (74-106); Potassium 3.7 mmol/L (3.5-5.1); Sodium 135 mmol/L (136-145); Total Protein 7.5 g/dL (6.4-8.2)
== END 2022-06-03 02:35 | disposition home or self-care (01) ==
PROVIDERS: PCP Physician Assistant Medical; Visit Provider Physician Assistant
DX: Z51.81 Encounter for therapeutic drug level monitoring (principal)
CPT/HCPCS: 36415; 80053; 85025

== ENCOUNTER 2022-08-06 03:53 | Outpatient (CLI) | payer BC, SELFPAY ==
[2022-08-06 12:43] LABS: Abs Immature Grans 0.03 10^3/uL (0.0-0.06); Absolute Basophil Count 0.11 10^3/uL (0.0-0.2); Absolute Eosinophil Count 0.25 10^3/uL (0.0-0.7); Absolute Lymphocyte Count 2.27 10^3/uL (1.2-3.4); Absolute Monocyte Count 0.97 10^3/uL (0.1-0.8); Absolute Neutrophil Count 4.45 10^3/uL (1.2-6.7); Basophils % 1.4; Eosinophils % 3.1; HCT 37.9 % (36.0-46.0); HGB 11.7 g/dL (11.2-15.7); Immature Grans % 0.4; Lymphocytes % 28.1; MCH 26.2 pg (27.0-33.0); MCHC 30.9 % (32.0-36.0); MCV 85 fL (80-95); MPV 10.2 fL (8.0-11.0); Platelet Count 265 10^3/uL (130-400); RBC 4.47 10^6/uL (3.93-5.22); RDW 15.9 % (11.7-14.6); RDW-SD 49.5 fL; WBC 8.08 10^3/uL (4.4-10.8)
[2022-08-06 13:21] LABS: ALT 18 U/L (14-59); AST 20 U/L (15-37); Albumin 3.3 g/dL (3.4-5.0); Alkaline Phosphatase 129 U/L (46-116); Anion Gap 6.1 mmol/L (3-11); BUN 11 mg/dL (7-18); Bilirubin, Total 0.3 mg/dL (0.2-1.0); CO2 27.9 mmol/L (21.0-32.0); CREATININE 0.6 mg/dL (0.55-1.02); Calcium 10.1 mg/dL (8.5-10.1); Chloride 104 mmol/L (98-107); Estimated GFR 108.61 (mL/min/1.73m2); Glucose 92 mg/dL (74-106); Sodium 138 mmol/L (136-145)
== END 2022-08-06 03:54 | disposition home or self-care (01) ==
PROVIDERS: PCP Physician Assistant Medical; Visit Provider Physician Assistant
DX: M05.9 Rheumatoid arthritis with rheumatoid factor, unspecified (principal); Z79.899 Other long term (current) drug therapy; Z51.81 Encounter for therapeutic drug level monitoring
CPT/HCPCS: 36415; 80053; 85025

== ENCOUNTER → 2022-11-01 00:02 | Outpatient (CLI) | payer BC, SELFPAY ==
--- NOTE | 2022-11-01 | DI.US_ITS ---
Exam(s) US BREAST LT COMPLETE MAMMO DIAGNOSTIC UNI EXAM: MAMMO DIAGNOSTIC UNI and U/S breast LT complete CLINICAL HISTORY: INCONCLUSIVE MAMMO R92.2 6 MO FU. TECHNIQUE: Craniocaudal and mediolateral oblique Full Field Digital Mammography views of the left br east with Computer Aided Diagnosis followed by Tomosynthesis and left breast ultrasound. COMPARISON: Comparison is made with prior examinations. FINDINGS: Mammography/Tomosynthesis: Masses/Architectural Distortion: The small well-circumscribed nodule at the 3 o'clock position of the left breast appears unchanged in size. No new nodules or areas of architectural distortion are seen . Microcalcifictions: No suspicious pleomorphic-type are seen. Skin Thickening/Nipple Retraction: None. Complete left breast US: Echotexture: Normal appearance of the glandular tissue. Shadowing: No suspicious foci. Cyst: There is again seen a 4 mm cyst at the 10 o'clock position of the left breast 2 cm from the nip ple. The cysts seen near the axillary region of the left breast are unchanged. Solid lesions: None seen. Ductal dilation: None. IMPRESSION: 1. No evidence of malignancy is noted. 2. Unless there is more urgent need, follow-up screening mammography is recommended, as per [employer] [employer] guidelines. 3. The findings were discussed with the patient on the date of the examination. BI-RADS Category 2 - Benign Findings Breast Density - Category C - Heterogeneously dense Breast density Category C or D implies that the patient has dense breast tissue. Dense breast tissue can make it harder to find cancer on a mammogram. Dense breast tissue is also associated with an incr eased risk of breast cancer. This information about the result of the mammogram report was provided to the patient to raise their awareness. Use this report when you speak with the patient about their risks for breast cancer, which includes their family history. At that time, you may recommend additional screening tests (Ultrasoun d or MRI) as these tests may add significant information. A negative radiographic report should not delay biopsy if a dominant or clinically suspicious mass is present. Up to ten percent of cancers are not identified on mammography. A negative report may reinforce clinical impression. Adenosis and dense breasts may obscure an underlying neoplasm. False positive reports average 6 to 10%. Patient will receive a letter notifying them of these results.
== END ==
PROVIDERS: PCP Physician Assistant Medical; Visit Provider Physician Assistant Medical
DX: Z12.31 Encounter for screening mammogram for malignant neoplasm of breast (principal); R92.8 Other abnormal and inconclusive findings on diagnostic imaging of breast
CPT/HCPCS: 76642; 77061; 77065; G0279

== ENCOUNTER 2022-11-19 16:09 | Outpatient (CLI) | payer BC, SELFPAY ==
[2022-11-19 16:18] LABS: HCT 35.3 % (36.0-46.0); HGB 11.6 g/dL (11.2-15.7); Lymphocytes % 21.6; MCH 28.2 pg (27.0-33.0); MCHC 32.9 % (32.0-36.0); MCV 86 fL (80-95); MPV 10.2 fL (8.0-11.0); Monocytes % 14.5; Neutrophils % 58.5; Platelet Count 288 10^3/uL (130-400); RBC 4.11 10^6/uL (3.93-5.22); RDW 13.1 % (11.7-14.6); RDW-SD 41.1 fL; WBC 7.74 10^3/uL (4.4-10.8)
[2022-11-19 16:19] LABS: Abs Immature Grans 0.03 10^3/uL (0.0-0.06); Absolute Basophil Count 0.07 10^3/uL (0.0-0.2); Absolute Eosinophil Count 0.32 10^3/uL (0.0-0.7); Absolute Lymphocyte Count 1.67 10^3/uL (1.2-3.4); Absolute Monocyte Count 1.12 10^3/uL (0.1-0.8); Absolute Neutrophil Count 4.53 10^3/uL (1.2-6.7); Basophils % 0.9; Eosinophils % 4.1; Immature Grans % 0.4
[2022-11-19 16:49] LABS: ALT 19 U/L (14-59); AST 21 U/L (15-37); Albumin 3.3 g/dL (3.4-5.0); Alkaline Phosphatase 139 U/L (46-116); Anion Gap 8.9 mmol/L (3-11); BUN 9 mg/dL (7-18); Bilirubin, Total 0.3 mg/dL (0.2-1.0); CO2 26.1 mmol/L (21.0-32.0); CREATININE 0.6 mg/dL (0.55-1.02); Calcium 9.8 mg/dL (8.5-10.1); Chloride 104 mmol/L (98-107); Estimated GFR 107.93 (mL/min/1.73m2); Glucose 96 mg/dL (74-106); Potassium 3.7 mmol/L (3.5-5.1); Sodium 139 mmol/L (136-145); Total Protein 7.2 g/dL (6.4-8.2)
== END 2022-11-19 16:10 | disposition home or self-care (01) ==
LOC: LBO 16:12
PROVIDERS: PCP Physician Assistant Medical; Visit Provider Physician Assistant
DX: M05.9 Rheumatoid arthritis with rheumatoid factor, unspecified (principal); Z79.899 Other long term (current) drug therapy; Z51.81 Encounter for therapeutic drug level monitoring
CPT/HCPCS: 36415; 80053; 85025

== ENCOUNTER 2022-11-21 21:41 | Outpatient (REF) | payer BC, SELFPAY ==
[2022-11-21 22:19] LABS: Bacteria Rare HPF (Negative); C & S Indicated? C&S Done As Ordered; Casts Negative LPF (Negative); Crystals Negative HPF (Negative); Epithelial Cells Rare HPF (Negative); Mucus Negative (Negative); RBC 0-2 HPF (0-2)
== END 2022-11-21 21:42 | disposition home or self-care (01) ==
LOC: LBN 21:41
PROVIDERS: PCP Physician Assistant Medical; Visit Provider Physician Assistant Medical
DX: R30.0 Dysuria (principal); R82.998 Other abnormal findings in urine
CPT/HCPCS: 81015; 87086

== ENCOUNTER 2023-04-08 10:52 | Outpatient (CLI) | payer BC, SELFPAY ==
[2023-04-08 16:44] LABS: Abs Immature Grans 0.02 10^3/uL (0.0-0.06); Absolute Basophil Count 0.07 10^3/uL (0.0-0.2); Absolute Eosinophil Count 0.31 10^3/uL (0.0-0.7); Absolute Lymphocyte Count 1.92 10^3/uL (1.2-3.4); Absolute Monocyte Count 1.24 10^3/uL (0.1-0.8); Absolute Neutrophil Count 3.72 10^3/uL (1.2-6.7); Eosinophils % 4.3; HGB 12.3 g/dL (11.2-15.7); Immature Grans % 0.3; Lymphocytes % 26.4; MCH 28.2 pg (27.0-33.0); MCHC 33.2 % (32.0-36.0); MCV 85 fL (80-95); MPV 10.5 fL (8.0-11.0); Platelet Count 275 10^3/uL (130-400); RBC 4.36 10^6/uL (3.93-5.22); RDW 13.3 % (11.7-14.6); RDW-SD 41.6 fL; WBC 7.28 10^3/uL (4.4-10.8)
[2023-04-08 16:48] LABS: ESR 21 mm/hr (0-30)
[2023-04-08 17:01] LABS: ALT 25 U/L (14-59); AST 26 U/L (15-37); Albumin 3.5 g/dL (3.4-5.0); Alkaline Phosphatase 130 U/L (46-116); Anion Gap 9.9 mmol/L (3-11); BUN 13 mg/dL (7-18); Bilirubin, Total 0.3 mg/dL (0.2-1.0); CO2 25.1 mmol/L (21.0-32.0); CREATININE 0.7 mg/dL (0.55-1.02); Calcium 10.2 mg/dL (8.5-10.1); Chloride 103 mmol/L (98-107); Glucose 86 mg/dL (74-106); Potassium 3.9 mmol/L (3.5-5.1); Sodium 138 mmol/L (136-145); Total Protein 7.4 g/dL (6.4-8.2)
== END 2023-04-08 10:53 | disposition home or self-care (01) ==
LOC: LBO 04-09 10:54
PROVIDERS: PCP Physician Assistant Medical; Visit Provider Physician Assistant
DX: M05.9 Rheumatoid arthritis with rheumatoid factor, unspecified (principal); Z51.81 Encounter for therapeutic drug level monitoring; Z79.899 Other long term (current) drug therapy
CPT/HCPCS: 36415; 80053; 85652; 85025

== ENCOUNTER 2023-05-03 10:39 | Outpatient (REF) | payer BC, SELFPAY | END 2023-05-03 10:40 | disposition home or self-care (01) | LOC: NCHCN 10:39 | PROVIDERS: PCP Physician Assistant Medical; Visit Provider Nurse Practitioner Family | DX: J02.9 Acute pharyngitis, unspecified (principal) | CPT/HCPCS: 87070 ==

== ENCOUNTER 2023-07-07 05:44 | Outpatient (CLI) | payer BC, SELFPAY ==
[2023-07-07 17:10] LABS: Abs Immature Grans 0.04 10^3/uL (0.0-0.06); Absolute Basophil Count 0.07 10^3/uL (0.0-0.2); Absolute Eosinophil Count 0.14 10^3/uL (0.0-0.7); Absolute Monocyte Count 1.15 10^3/uL (0.1-0.8); Absolute Neutrophil Count 6.24 10^3/uL (1.2-6.7); Basophils % 0.7; Eosinophils % 1.5; Immature Grans % 0.4; Lymphocytes % 19.1; MCH 28.9 pg (27.0-33.0); MCHC 33.3 % (32.0-36.0); MCV 87 fL (80-95); MPV 10.9 fL (8.0-11.0); Monocytes % 12.2; Neutrophils % 66.1; Platelet Count 275 10^3/uL (130-400); RBC 4.15 10^6/uL (3.93-5.22); RDW 14.1 % (11.7-14.6); RDW-SD 45.1 fL; WBC 9.44 10^3/uL (4.4-10.8)
[2023-07-07 17:12] LABS: ESR 7 mm/hr (0-30)
[2023-07-07 17:56] LABS: ALT 21 U/L (14-59); AST 24 U/L (15-37); Albumin 3.8 g/dL (3.4-5.0); Alkaline Phosphatase 93 U/L (46-116); Anion Gap 6.6 mmol/L (3-11); BUN 10 mg/dL (7-18); Bilirubin, Total 0.5 mg/dL (0.2-1.0); CO2 28.4 mmol/L (21.0-32.0); CREATININE 0.7 mg/dL (0.55-1.02); Calcium 10.1 mg/dL (8.5-10.1); Chloride 104 mmol/L (98-107); Glucose 107 mg/dL (74-106); Potassium 3.9 mmol/L (3.5-5.1); Sodium 139 mmol/L (136-145); Total Protein 7.3 g/dL (6.4-8.2)
== END 2023-07-07 05:45 | disposition home or self-care (01) ==
PROVIDERS: PCP Physician Assistant Medical; Visit Provider Physician Assistant
DX: Z51.81 Encounter for therapeutic drug level monitoring (principal)
CPT/HCPCS: 36415; 80053; 85652; 85025

== ENCOUNTER 2023-07-22 05:10 | Outpatient (CLI) | payer BC, SELFPAY ==
[2023-07-22 12:41] LABS: Abs Immature Grans 0.03 10^3/uL (0.0-0.06); Absolute Basophil Count 0.05 10^3/uL (0.0-0.2); Absolute Lymphocyte Count 1.68 10^3/uL (1.2-3.4); Absolute Monocyte Count 1.13 10^3/uL (0.1-0.8); Absolute Neutrophil Count 5.01 10^3/uL (1.2-6.7); Basophils % 0.6 %; Eosinophils % 2.5 %; HCT 38.5 % (36.0-46.0); HGB 12.6 g/dL (11.2-15.7); Immature Grans % 0.4 %; Lymphocytes % 20.7 %; MCH 28.8 pg (27.0-33.0); MCHC 32.7 % (32.0-36.0); MCV 88 fL (80-95); MPV 10.7 fL (8.0-11.0); Neutrophils % 61.8 %; Platelet Count 257 10^3/uL (130-400); RBC 4.38 10^6/uL (3.93-5.22); RDW 13.9 % (11.7-14.6)
[2023-07-22 12:46] LABS: ESR 11 mm/hr (0-30)
[2023-07-22 13:22] LABS: ALT 26 U/L (14-59); AST 30 U/L (15-37); Albumin 3.7 g/dL (3.4-5.0); Alkaline Phosphatase 115 U/L (46-116); Anion Gap 6.7 mmol/L (3-11); BUN 10 mg/dL (7-18); Bilirubin, Total 0.3 mg/dL (0.2-1.0); CO2 28.3 mmol/L (21.0-32.0); CREATININE 0.7 mg/dL (0.55-1.02); Chloride 105 mmol/L (98-107); Glucose 86 mg/dL (74-106); Sodium 140 mmol/L (136-145); Total Protein 6.9 g/dL (6.4-8.2)
[2023-07-22 16:38] LABS: C-Reactive Protein < 0.50 mg/dL (<or=0.5)
== END 2023-07-22 05:11 | disposition home or self-care (01) ==
PROVIDERS: PCP Physician Assistant Medical; Visit Provider Physician Assistant
DX: Z79.899 Other long term (current) drug therapy (principal); M19.90 Unspecified osteoarthritis, unspecified site
CPT/HCPCS: 36415; 80053; 85652; 85025; 86140

== ENCOUNTER 2023-08-05 01:29 | Outpatient (CLI) | payer BC, SELFPAY ==
[2023-08-05 16:04] LABS: Abs Immature Grans 0.02 10^3/uL (0.0-0.06); Absolute Basophil Count 0.07 10^3/uL (0.0-0.2); Absolute Eosinophil Count 0.22 10^3/uL (0.0-0.7); Absolute Lymphocyte Count 1.54 10^3/uL (1.2-3.4); Absolute Neutrophil Count 4.05 10^3/uL (1.2-6.7); Eosinophils % 3.1 %; HCT 37.5 % (36.0-46.0); HGB 12.1 g/dL (11.2-15.7); Immature Grans % 0.3 %; Lymphocytes % 21.7 %; MCH 28.7 pg (27.0-33.0); MCHC 32.3 % (32.0-36.0); MCV 89 fL (80-95); Monocytes % 16.9 %; Platelet Count 256 10^3/uL (130-400); RBC 4.21 10^6/uL (3.93-5.22); RDW 13.8 % (11.7-14.6)
[2023-08-05 16:12] LABS: ESR 6 mm/hr (0-30)
[2023-08-05 17:06] LABS: ALT 38 U/L (14-59); AST 34 U/L (15-37); Albumin 3.7 g/dL (3.4-5.0); Alkaline Phosphatase 142 U/L (46-116); Anion Gap 7.8 mmol/L (3-11); BUN 10 mg/dL (7-18); Bilirubin, Total 0.4 mg/dL (0.2-1.0); CO2 27.2 mmol/L (21.0-32.0); CREATININE 0.7 mg/dL (0.55-1.02); Calcium 9.8 mg/dL (8.5-10.1); Chloride 102 mmol/L (98-107); Glucose 85 mg/dL (74-106); Potassium 3.8 mmol/L (3.5-5.1); Sodium 137 mmol/L (136-145); Total Protein 7.4 g/dL (6.4-8.2)
[2023-08-05 17:10] LABS: C-Reactive Protein < 0.50 mg/dL (<or=0.5)
== END 2023-08-05 01:30 | disposition home or self-care (01) ==
PROVIDERS: PCP Physician Assistant Medical; Visit Provider Nurse Practitioner Family
DX: M19.19 Post-traumatic osteoarthritis, other specified site (principal); Z79.899 Other long term (current) drug therapy
CPT/HCPCS: 36415; 80053; 85652; 85025; 86140

== ENCOUNTER 2023-08-19 20:09 | Outpatient (CLI) | payer BC, SELFPAY ==
[2023-08-19 12:39] LABS: Abs Immature Grans 0.04 10^3/uL (0.0-0.06); Absolute Basophil Count 0.07 10^3/uL (0.0-0.2); Absolute Eosinophil Count 0.21 10^3/uL (0.0-0.7); Absolute Monocyte Count 1.01 10^3/uL (0.1-0.8); Eosinophils % 3.1 %; HCT 37.5 % (36.0-46.0); HGB 12.7 g/dL (11.2-15.7); Immature Grans % 0.6 %; Lymphocytes % 20.8 %; MCHC 33.9 % (32.0-36.0); MCV 88 fL (80-95); MPV 10.8 fL (8.0-11.0); Neutrophils % 59.5 %; Platelet Count 262 10^3/uL (130-400); RBC 4.24 10^6/uL (3.93-5.22); RDW 14.1 % (11.7-14.6); RDW-SD 45.1 fL; WBC 6.73 10^3/uL (4.4-10.8)
[2023-08-19 12:56] LABS: ESR 12 mm/hr (0-30)
[2023-08-19 13:14] LABS: ALT 28 U/L (14-59); AST 24 U/L (15-37); Albumin 3.6 g/dL (3.4-5.0); Alkaline Phosphatase 130 U/L (46-116); BUN 10 mg/dL (7-18); Bilirubin, Total 0.4 mg/dL (0.2-1.0); CREATININE 0.6 mg/dL (0.55-1.02); Calcium 9.9 mg/dL (8.5-10.1); Chloride 104 mmol/L (98-107); Estimated GFR 107.93 (mL/min/1.73m2); Glucose 89 mg/dL (74-106); Potassium 3.9 mmol/L (3.5-5.1); Sodium 139 mmol/L (136-145); Total Protein 7.4 g/dL (6.4-8.2)
[2023-08-19 13:15] LABS: C-Reactive Protein < 0.50 mg/dL (<or=0.5)
== END 2023-08-19 20:10 | disposition home or self-care (01) ==
LOC: LBO 08-27 20:09
PROVIDERS: PCP Physician Assistant Medical; Visit Provider Nurse Practitioner Family
DX: M19.09 Primary osteoarthritis, other specified site (principal); Z79.899 Other long term (current) drug therapy
CPT/HCPCS: 36415; 80053; 85652; 85025; 86140

== ENCOUNTER 2023-09-02 02:50 | Outpatient (CLI) | payer BC, SELFPAY ==
[2023-09-02 12:12] LABS: Abs Immature Grans 0.03 10^3/uL (0.0-0.06); Absolute Basophil Count 0.06 10^3/uL (0.0-0.2); Absolute Eosinophil Count 0.15 10^3/uL (0.0-0.7); Absolute Monocyte Count 1.14 10^3/uL (0.1-0.8); Absolute Neutrophil Count 5.28 10^3/uL (1.2-6.7); Basophils % 0.7 %; ESR 9 mm/hr (0-30); Eosinophils % 1.8 %; HCT 37.7 % (36.0-46.0); HGB 12.3 g/dL (11.2-15.7); Immature Grans % 0.4 %; Lymphocytes % 19.4 %; MCH 29.5 pg (27.0-33.0); MCHC 32.6 % (32.0-36.0); MCV 90 fL (80-95); MPV 10.5 fL (8.0-11.0); Monocytes % 13.8 %; Neutrophils % 63.9 %; Platelet Count 277 10^3/uL (130-400); RBC 4.17 10^6/uL (3.93-5.22); RDW 14.2 % (11.7-14.6); RDW-SD 46.5 fL; WBC 8.26 10^3/uL (4.4-10.8)
[2023-09-02 12:42] LABS: ALT 34 U/L (14-59); AST 43 U/L (15-37); Albumin 3.7 g/dL (3.4-5.0); Alkaline Phosphatase 131 U/L (46-116); BUN 12 mg/dL (7-18); Bilirubin, Total 0.39 mg/dL (0.2-1.0); C-Reactive Protein < 0.50 mg/dL (<or=0.5); CREATININE 0.7 mg/dL (0.55-1.02); Calcium 10.3 mg/dL (8.5-10.1); Chloride 105 mmol/L (98-107); Glucose 97 mg/dL (74-106); Sodium 139 mmol/L (136-145); Total Protein 7.4 g/dL (6.4-8.2)
== END 2023-09-02 02:51 | disposition home or self-care (01) ==
PROVIDERS: PCP Physician Assistant Medical; Visit Provider Nurse Practitioner Family
DX: M19.90 Unspecified osteoarthritis, unspecified site (principal); Z79.899 Other long term (current) drug therapy
CPT/HCPCS: 36415; 80053; 85652; 85025; 86140

== ENCOUNTER 2023-10-08 15:57 | Outpatient (CLI) | payer BC, SELFPAY ==
[2023-10-08 14:10] LABS: ESR 10 mm/hr (0-30)
[2023-10-08 14:11] LABS: Abs Immature Grans 0.02 10^3/uL (0.0-0.06); Absolute Basophil Count 0.05 10^3/uL (0.0-0.2); Absolute Eosinophil Count 0.21 10^3/uL (0.0-0.7); Absolute Lymphocyte Count 1.46 10^3/uL (1.2-3.4); Absolute Monocyte Count 1.01 10^3/uL (0.1-0.8); Basophils % 0.8 %; Eosinophils % 3.3 %; HCT 36.3 % (36.0-46.0); HGB 12.1 g/dL (11.2-15.7); Immature Grans % 0.3 %; Lymphocytes % 22.6 %; MCHC 33.3 % (32.0-36.0); MCV 90 fL (80-95); MPV 10.7 fL (8.0-11.0); Monocytes % 15.7 %; Neutrophils % 57.3 %; Platelet Count 250 10^3/uL (130-400); RBC 4.04 10^6/uL (3.93-5.22); RDW 14.2 % (11.7-14.6); RDW-SD 46.5 fL; WBC 6.45 10^3/uL (4.4-10.8)
[2023-10-08 15:16] LABS: ALT 31 U/L (14-59); AST 28 U/L (15-37); Albumin 3.6 g/dL (3.4-5.0); Alkaline Phosphatase 122 U/L (46-116); BUN 9 mg/dL (7-18); Bilirubin, Total 0.38 mg/dL (0.2-1.0); CREATININE 0.7 mg/dL (0.55-1.02); Calcium 10.5 mg/dL (8.5-10.1); Chloride 102 mmol/L (98-107); Estimated GFR 103.35 (mL/min/1.73m2); Glucose 88 mg/dL (74-106); Potassium 4.1 mmol/L (3.5-5.1); Sodium 138 mmol/L (136-145); Total Protein 7.3 g/dL (6.4-8.2)
[2023-10-08 15:17] LABS: C-Reactive Protein < 0.50 mg/dL (<or=0.5)
== END 2023-10-08 15:58 | disposition home or self-care (01) ==
LOC: LBO 15:57
PROVIDERS: PCP Physician Assistant Medical; Visit Provider Nurse Practitioner Family
DX: M19.90 Unspecified osteoarthritis, unspecified site (principal); Z79.899 Other long term (current) drug therapy
CPT/HCPCS: 36415; 80053; 85652; 85025; 86140

== ENCOUNTER 2023-10-28 16:20 | Outpatient (CLI) | payer BC, SELFPAY ==
[2023-10-28 16:16] LABS: Abs Immature Grans 0.02 10^3/uL (0.0-0.06); Absolute Basophil Count 0.07 10^3/uL (0.0-0.2); Absolute Eosinophil Count 0.17 10^3/uL (0.0-0.7); Absolute Monocyte Count 1.08 10^3/uL (0.1-0.8); Absolute Neutrophil Count 2.88 10^3/uL (1.2-6.7); Basophils % 1.2 %; Eosinophils % 2.9 %; HCT 39.2 % (36.0-46.0); HGB 12.6 g/dL (11.2-15.7); Immature Grans % 0.3 %; Lymphocytes % 27.5 %; MCH 29.9 pg (27.0-33.0); MCHC 32.1 % (32.0-36.0); MCV 93 fL (80-95); MPV 10.6 fL (8.0-11.0); Monocytes % 18.6 %; Neutrophils % 49.5 %; Platelet Count 272 10^3/uL (130-400); RBC 4.22 10^6/uL (3.93-5.22); RDW-SD 47.2 fL; WBC 5.82 10^3/uL (4.4-10.8)
[2023-10-28 16:26] LABS: ESR 8 mm/hr (0-30)
[2023-10-28 17:34] LABS: ALT 36 U/L (14-59); AST 39 U/L (15-37); Alkaline Phosphatase 126 U/L (46-116); Anion Gap 6.5 mmol/L (3-11); BUN 11 mg/dL (7-18); Bilirubin, Total 0.39 mg/dL (0.2-1.0); CO2 28.5 mmol/L (21.0-32.0); CREATININE 0.7 mg/dL (0.55-1.02); Calcium 10.8 mg/dL (8.5-10.1); Chloride 103 mmol/L (98-107); Estimated GFR 103.35 (mL/min/1.73m2); Glucose 84 mg/dL (74-106); Sodium 138 mmol/L (136-145); Total Protein 7.4 g/dL (6.4-8.2)
[2023-10-28 17:47] LABS: C-Reactive Protein < 0.50 mg/dL (<or=0.5)
== END 2023-10-28 16:21 | disposition home or self-care (01) ==
LOC: LBO 16:22
PROVIDERS: PCP Physician Assistant Medical; Visit Provider Nurse Practitioner Family
DX: M19.90 Unspecified osteoarthritis, unspecified site (principal); Z79.899 Other long term (current) drug therapy
CPT/HCPCS: 36415; 80053; 85652; 85025; 86140

== ENCOUNTER 2023-11-24 16:01 | Outpatient (CLI) | payer BC, SELFPAY ==
[2023-11-24 16:13] LABS: Abs Immature Grans 0.04 10^3/uL (0.0-0.06); Absolute Basophil Count 0.09 10^3/uL (0.0-0.2); Absolute Eosinophil Count 0.17 10^3/uL (0.0-0.7); Absolute Lymphocyte Count 1.65 10^3/uL (1.2-3.4); Absolute Monocyte Count 1.17 10^3/uL (0.1-0.8); Absolute Neutrophil Count 6.45 10^3/uL (1.2-6.7); Basophils % 0.9 %; Eosinophils % 1.8 %; HCT 38.5 % (36.0-46.0); HGB 12.8 g/dL (11.2-15.7); Immature Grans % 0.4 %; Lymphocytes % 17.2 %; MCH 30.5 pg (27.0-33.0); MCHC 33.2 % (32.0-36.0); MCV 92 fL (80-95); Monocytes % 12.2 %; Neutrophils % 67.5 %; Platelet Count 265 10^3/uL (130-400); RDW 13.9 % (11.7-14.6); WBC 9.57 10^3/uL (4.4-10.8)
[2023-11-24 16:14] LABS: ESR 8 mm/hr (0-30)
[2023-11-24 16:59] LABS: ALT 22 U/L (14-59); AST 28 U/L (15-37); Albumin 3.7 g/dL (3.4-5.0); Alkaline Phosphatase 104 U/L (46-116); Anion Gap 6.8 mmol/L (3-11); BUN 9 mg/dL (7-18); Bilirubin, Total 0.49 mg/dL (0.2-1.0); C-Reactive Protein < 0.50 mg/dL (<or=0.5); CO2 27.2 mmol/L (21.0-32.0); CREATININE 0.7 mg/dL (0.55-1.02); Calcium 10.8 mg/dL (8.5-10.1); Chloride 101 mmol/L (98-107); Estimated GFR 103.35 (mL/min/1.73m2); Glucose 85 mg/dL (74-106); Potassium 4.2 mmol/L (3.5-5.1); Sodium 135 mmol/L (136-145); Total Protein 7.3 g/dL (6.4-8.2)
== END 2023-11-24 16:02 | disposition home or self-care (01) ==
LOC: LBO 16:01
PROVIDERS: PCP Physician Assistant Medical; Visit Provider Nurse Practitioner Family
DX: M19.90 Unspecified osteoarthritis, unspecified site (principal); Z79.899 Other long term (current) drug therapy
CPT/HCPCS: 36415; 80053; 85652; 85025; 86140

== ENCOUNTER 2023-12-23 13:14 | Outpatient (CLI) | payer BC, SELFPAY ==
--- NOTE | 2023-12-23 | DI.RAD_ITS ---
Exam(s) XR KNEE LT 2V AP,LAT EXAM: XR KNEE LT 2V AP,LAT CLINICAL HISTORY: RA, M06.9; persistent effusion, lt knee, M25.462. TECHNIQUE: 2D digital imaging was performed. COMPARISON: CR XR KNEE RT 2V AP,LAT from 12/23/2023 FINDINGS: Two views-AP and lateral. No evidence of fracture. Small amount of increased joint fluid noted. There is moderate narrowing of the lateral and medial compartments, slightly more so in the lateral c ompartment and there is also degenerative subarticular cyst in the lateral aspect of the lateral tibi al plateau measuring approximately 11 x 8 mm. Patella appears unremarkable without evidence of an obvious osteochondral defect, as is seen in the o pposite-right knee. IMPRESSION: Degenerative changes, most prominent in the lateral compartment but also evident in the medial compar tment. Small joint effusion. DATA REPOSITORY: RADIATION DOSE DELIVERED:
--- NOTE | 2023-12-23 | DI.RAD_ITS ---
Exam(s) XR KNEE RT 2V AP,LAT EXAM: XR KNEE RT 2V AP,LAT CLINICAL HISTORY: RA, M06.9; persistent effusion, rt knee, M25.461. TECHNIQUE: 2D digital imaging was performed. COMPARISON: CR XR KNEE LT 3V AP,LAT,JOSELIN from 08/29/2020 CR XR KNEE LT 2V AP,LAT from 12/23/2023 FINDINGS: Two views-AP and lateral No evidence of fracture but there does appear to be a small amount of increased joint fluid. There is a 9 x 8 mm posteriorly located lucency in the medial half of the patella just above the midl ine which is either degenerative subarticular cyst or osteochondral defect. Similar finding is not s een in the opposite-left patella. There is mild narrowing of the medial compartment. No osteophytes. Benign-appearing subarticular karina cency is noted in the lateral tibial plateau similar but larger than on the opposite-left knee. Visualize fibular head and neck appear unremarkable. IMPRESSION: Posterior patellar finding as above which may be an osteochondral defect. Other findings as above. Small joint effusion. Recommend follow-up MRI. DATA REPOSITORY: RADIATION DOSE DELIVERED:
== END 2023-12-23 13:34 ==
LOC: DI 13:15
PROVIDERS: PCP Physician Assistant Medical; Visit Provider Nurse Practitioner Family
DX: M25.462 Effusion, left knee (principal); M25.461 Effusion, right knee
CPT/HCPCS: 73560

== ENCOUNTER 2024-01-20 04:26 | Outpatient (CLI) | payer BC, SELFPAY ==
[2024-01-20 16:40] LABS: Abs Immature Grans 0.03 10^3/uL (0.0-0.06); Absolute Basophil Count 0.11 10^3/uL (0.0-0.2); Absolute Eosinophil Count 0.48 10^3/uL (0.0-0.7); Absolute Lymphocyte Count 1.85 10^3/uL (1.2-3.4); Absolute Monocyte Count 1.24 10^3/uL (0.1-0.8); Absolute Neutrophil Count 4.68 10^3/uL (1.2-6.7); Basophils % 1.3 %; Eosinophils % 5.7 %; HCT 37.5 % (36.0-46.0); HGB 12.7 g/dL (11.2-15.7); Immature Grans % 0.4 %; Lymphocytes % 22.1 %; MCH 30.8 pg (27.0-33.0); MCHC 33.9 % (32.0-36.0); MCV 91 fL (80-95); MPV 10.2 fL (8.0-11.0); Monocytes % 14.8 %; Neutrophils % 55.7 %; Platelet Count 285 10^3/uL (130-400); RBC 4.13 10^6/uL (3.93-5.22); RDW 13.3 % (11.7-14.6); RDW-SD 44.2 fL; WBC 8.39 10^3/uL (4.4-10.8)
[2024-01-20 16:45] LABS: ESR 21 mm/hr (0-30)
[2024-01-20 17:29] LABS: ALT 34 U/L (14-59); AST 31 U/L (15-37); Albumin 3.7 g/dL (3.4-5.0); Alkaline Phosphatase 206 U/L (46-116); Anion Gap 7.2 mmol/L (3-11); BUN 14 mg/dL (7-18); Bilirubin, Total 0.33 mg/dL (0.2-1.0); CO2 27.8 mmol/L (21.0-32.0); CREATININE 0.8 mg/dL (0.55-1.02); Calcium 10.5 mg/dL (8.5-10.1); Chloride 104 mmol/L (98-107); Estimated GFR 88.05 (mL/min/1.73m2); Glucose 74 mg/dL (74-106); Potassium 4.1 mmol/L (3.5-5.1); Sodium 139 mmol/L (136-145); Total Protein 7.1 g/dL (6.4-8.2)
[2024-01-20 17:30] LABS: C-Reactive Protein < 0.50 mg/dL (<or=0.5)
[2024-01-20 18:24] LABS: CREATININE 0.8 mg/dL (0.55-1.02); Estimated GFR 88.05 (mL/min/1.73m2); Vitamin D 25 Total 21.9 ng/mL (30-100)
[2024-01-21 18:54] LABS: Parathyroid Hormone,Intact 108 pg/mL (19-88)
== END 2024-01-20 04:27 | disposition home or self-care (01) ==
PROVIDERS: Internal Medicine; PCP Physician Assistant Medical; Visit Provider Nurse Practitioner Family
DX: E21.3 Hyperparathyroidism, unspecified (principal); M19.90 Unspecified osteoarthritis, unspecified site; Z79.899 Other long term (current) drug therapy; E55.9 Vitamin D deficiency, unspecified
CPT/HCPCS: 36415; 80053; 82306; 85652; 82565; 83970; 85025; 86140

== ENCOUNTER 2024-02-12 01:39 | Outpatient (CLI) | payer BC, SELFPAY ==
--- NOTE | 2024-02-12 | DI.RAD_ITS ---
Exam(s) XR FOOT LT COMPLETE EXAM: XR FOOT LT COMPLETE CLINICAL HISTORY: PAIN 3RD TOE, SWELLING, KNOWN RA,? JOINT EROSION,M79.675. TECHNIQUE: 2D digital imaging was performed of the left foot. Three images were obtained. AP, obli que and lateral views were obtained. COMPARISON: No exams were available for comparison FINDINGS: BONES: No acute fracture is present. No bony destructive lesion is seen. There is a small plantar marian caneal spur. JOINTS: No dislocation present. Spaces are well maintained. No joint space narrowing, periarticular osteopenia or erosions are seen. SOFT TISSUE: Normal. No soft tissue gas is present. IMPRESSION: Small plantar calcaneal spur. DATA REPOSITORY: RADIATION DOSE DELIVERED:
== END 2024-02-12 01:59 ==
LOC: DI 01:39
PROVIDERS: PCP Physician Assistant Medical; Visit Provider Family Medicine
DX: M79.675 Pain in left toe(s) (principal)
CPT/HCPCS: 73630

== ENCOUNTER 2024-02-12 01:39 | Outpatient (CLI) | payer BC, SELFPAY ==
--- NOTE | 2024-02-12 | DI.DEXA_ITS ---
Exam(s) XR DEXA BONE DENSITY W/WO DAVIAN EXAM: XR DEXA BONE DENSITY W/WO DAVIAN CLINICAL HISTORY: Hyperparathyroidism, E21.3; assess 03/12 radius TECHNIQUE: COMPARISON: CR LUMBAR SPINE COMPLETE from 06/27/2010 FINDINGS: Lateral Spine Image: Unremarkable. No compression deformities identified. Left hip: Total T-Score: -1.3 Total Z-Score: -0.7 T- and Z-scores: Findings are consistent with osteopenia. Lumbar Spine: Total T-Score: -1.9 Total Z-Score: -0.9 T- and Z-scores: Findings are consistent with osteopenia. IMPRESSION: No evidence of osteoporosis.
== END 2024-02-12 01:59 ==
LOC: DI 01:39
PROVIDERS: PCP Physician Assistant Medical; Visit Provider Internal Medicine
DX: E21.3 Hyperparathyroidism, unspecified (principal)
CPT/HCPCS: 77080

== ENCOUNTER 2024-02-12 01:40 | Outpatient (CLI) | payer BC, SELFPAY ==
--- NOTE | 2024-02-12 | DI.MRI_ITS ---
Exam(s) MR LOWER JOINT RT WO EXAM: MR LOWER JOINT RT WO CLINICAL HISTORY: Seropositive RA, M05.9; Rt knee effusion, M25.461; chronic rt knee pain,. TECHNIQUE: Multiplanar multisequence MRI was performed. COMPARISON: CR XR KNEE RT 2V AP,LAT from 12/23/2023 FINDINGS: BONES: There is no fracture or contusion pattern. JOINTS: In the lateral femoral tibial joint there is marked loss of the articular cartilage overlying both femoral condyle and the tibial plateau. Osteophytes and subchondral edema is seen in the proxi mal tibia particularly laterally. At the patellofemoral joint there is marked thinning of the articu lar cartilage overlying the patella. There is prominent subchondral cyst in the medial patellar face t. There is a small joint effusion. There is mild thickening and hypertrophy of the synovial membra sherman in the knee. TENDONS: Extensor mechanism: Unremarkable. Medial retinaculum: Unremarkable. Lateral retinaculum: Unremarkable. Popliteus: Unremarkable. MUSCLES: Unremarkable. MENISCI: There is marked decrease in size of the posterior horn and body of the medial meniscus consi stent with a chronic tear/degeneration. There is also marked decrease in size and and abnormal signa l within the body and posterior horn of the lateral meniscus consistent with a tear which is likely c hronic. The abnormality extends into the root of the lateral meniscus. SOFT TISSUES: Unremarkable. LIGAMENTS: Anterior Cruciate: Anterior cruciate ligament is attenuated but intact. Posterior Cruciate: Unremarkable. Medial Collateral:Unremarkable. Lateral Collateral: Unremarkable. OTHER: IMPRESSION: 1. Joint effusion and mild thickening and hypertrophy of the synovium membranes. Subchondral cysts a nd subchondral edema is noted. The findings can be seen with rheumatoid arthritis. 2. Secondary degenerative changes in the knee particularly involving the lateral femoral tibial joint . 3. Marked diminution in size and abnormal signal both the medial lateral menisci consistent with tear s which may be chronic. 4. No evidence of a ligament tear. DATA REPOSITORY:
== END 2024-02-12 02:00 ==
LOC: DI 01:40
PROVIDERS: PCP Physician Assistant Medical; Visit Provider Nurse Practitioner Family
DX: M25.461 Effusion, right knee (principal)
CPT/HCPCS: 73721

== ENCOUNTER 2024-03-19 00:55 | Outpatient (CLI) | payer BC, SELFPAY ==
[2024-03-19 07:50] LABS: ESR 9 mm/hr (0-30)
[2024-03-19 07:51] LABS: Abs Immature Grans 0.04 10^3/uL (0.0-0.06); Absolute Basophil Count 0.08 10^3/uL (0.0-0.2); Absolute Lymphocyte Count 1.21 10^3/uL (1.2-3.4); Absolute Monocyte Count 1.31 10^3/uL (0.1-0.8); Absolute Neutrophil Count 6.75 10^3/uL (1.2-6.7); Basophils % 0.8 %; Eosinophils % 2.1 %; HGB 14.4 g/dL (11.2-15.7); Immature Grans % 0.4 %; Lymphocytes % 12.6 %; MCH 30.1 pg (27.0-33.0); MCHC 32.7 % (32.0-36.0); MCV 92 fL (80-95); MPV 10.2 fL (8.0-11.0); Monocytes % 13.7 %; Neutrophils % 70.4 %; Platelet Count 257 10^3/uL (130-400); RBC 4.78 10^6/uL (3.93-5.22); RDW 14.2 % (11.7-14.6); RDW-SD 47.6 fL; WBC 9.59 10^3/uL (4.4-10.8)
[2024-03-19 08:19] LABS: ALT 50 U/L (14-59); AST 70 U/L (15-37); Albumin 3.9 g/dL (3.4-5.0); Alkaline Phosphatase 146 U/L (46-116); Anion Gap 6.9 mmol/L (3-11); BUN 8 mg/dL (7-18); Bilirubin, Total 0.45 mg/dL (0.2-1.0); CO2 30.1 mmol/L (21.0-32.0); CREATININE 0.8 mg/dL (0.55-1.02); Calcium 11.1 mg/dL (8.5-10.1); Chloride 102 mmol/L (98-107); Estimated GFR 88.05 (mL/min/1.73m2); Glucose 92 mg/dL (74-106); Sodium 139 mmol/L (136-145); Total Protein 7.8 g/dL (6.4-8.2)
[2024-03-19 08:20] LABS: C-Reactive Protein < 0.50 mg/dL (<or=0.5)
== END 2024-03-19 00:56 | disposition home or self-care (01) ==
PROVIDERS: PCP Physician Assistant Medical; Visit Provider Nurse Practitioner Family
DX: M19.90 Unspecified osteoarthritis, unspecified site (principal); Z79.899 Other long term (current) drug therapy
CPT/HCPCS: 36415; 80053; 85652; 85025; 86140

== ENCOUNTER 2024-03-29 03:21 | Outpatient (CLI) | payer BC, SELFPAY ==
[2024-03-29 16:21] LABS: Abs Immature Grans 0.03 10^3/uL (0.0-0.06); Absolute Basophil Count 0.07 10^3/uL (0.0-0.2); Absolute Eosinophil Count 0.17 10^3/uL (0.0-0.7); Absolute Lymphocyte Count 1.41 10^3/uL (1.2-3.4); Absolute Monocyte Count 1.15 10^3/uL (0.1-0.8); Absolute Neutrophil Count 4.32 10^3/uL (1.2-6.7); Eosinophils % 2.4 %; HCT 40.6 % (36.0-46.0); HGB 13.1 g/dL (11.2-15.7); Immature Grans % 0.4 %; Lymphocytes % 19.7 %; MCH 30.1 pg (27.0-33.0); MCHC 32.3 % (32.0-36.0); MCV 93 fL (80-95); MPV 10.4 fL (8.0-11.0); Monocytes % 16.1 %; Neutrophils % 60.4 %; Platelet Count 250 10^3/uL (130-400); RBC 4.35 10^6/uL (3.93-5.22); RDW 14.2 % (11.7-14.6); RDW-SD 48.7 fL; WBC 7.15 10^3/uL (4.4-10.8)
[2024-03-29 16:26] LABS: ESR 12 mm/hr (0-30)
[2024-03-29 16:39] LABS: ALT 32 U/L (14-59); AST 32 U/L (15-37); Albumin 3.9 g/dL (3.4-5.0); Alkaline Phosphatase 120 U/L (46-116); Anion Gap 6.7 mmol/L (3-11); BUN 14 mg/dL (7-18); Bilirubin, Total 0.42 mg/dL (0.2-1.0); CO2 28.3 mmol/L (21.0-32.0); CREATININE 0.7 mg/dL (0.55-1.02); Calcium 10.7 mg/dL (8.5-10.1); Chloride 102 mmol/L (98-107); Estimated GFR 103.35 (mL/min/1.73m2); Glucose 82 mg/dL (74-106); Potassium 3.7 mmol/L (3.5-5.1); Sodium 137 mmol/L (136-145); Total Protein 7.5 g/dL (6.4-8.2)
[2024-03-29 16:48] LABS: ALT 28 U/L (14-59); AST 31 U/L (15-37); Albumin 3.9 g/dL (3.4-5.0); Alkaline Phosphatase 121 U/L (46-116); Bilirubin, Direct 0.1 mg/dL (0.0-0.2); Bilirubin, Total 0.45 mg/dL (0.2-1.0); Total Protein 7.5 g/dL (6.4-8.2)
[2024-03-29 17:00] LABS: CREATININE 0.7 mg/dL (0.55-1.02); Estimated GFR 103.35 (mL/min/1.73m2); Vitamin D 25 Total 30.3 ng/mL (30-100)
[2024-03-29 17:06] LABS: C-Reactive Protein < 0.50 mg/dL (<or=0.5)
== END 2024-03-29 03:22 | disposition home or self-care (01) ==
LOC: LBO 03:21
PROVIDERS: Nurse Practitioner Family; PCP Physician Assistant Medical; Visit Provider Internal Medicine
DX: E55.9 Vitamin D deficiency, unspecified (principal); E21.3 Hyperparathyroidism, unspecified; R74.01 Elevation of levels of liver transaminase levels; M19.90 Unspecified osteoarthritis, unspecified site; Z79.899 Other long term (current) drug therapy
CPT/HCPCS: 36415; 80053; 80076; 82306; 85652; 82565; 83970; 85025; 86140

== ENCOUNTER 2024-06-03 10:37 | Outpatient (CLI) | payer BC, SELFPAY ==
[2024-06-03 12:13] LABS: Abs Immature Grans 0.02 10^3/uL (0.0-0.06); Absolute Basophil Count 0.07 10^3/uL (0.0-0.2); Absolute Eosinophil Count 0.21 10^3/uL (0.0-0.7); Absolute Lymphocyte Count 0.96 10^3/uL (1.2-3.4); Absolute Neutrophil Count 4.47 10^3/uL (1.2-6.7); Eosinophils % 2.9 %; HCT 38.1 % (36.0-46.0); HGB 12.8 g/dL (11.2-15.7); Immature Grans % 0.3 %; Lymphocytes % 13.5 %; MCH 31.1 pg (27.0-33.0); MCHC 33.6 % (32.0-36.0); MCV 93 fL (80-95); MPV 10.9 fL (8.0-11.0); Monocytes % 19.6 %; Neutrophils % 62.7 %; Platelet Count 269 10^3/uL (130-400); RBC 4.12 10^6/uL (3.93-5.22); RDW 13.8 % (11.7-14.6); RDW-SD 46.8 fL; WBC 7.13 10^3/uL (4.4-10.8)
[2024-06-03 12:15] LABS: ESR 2 mm/hr (0-30)
[2024-06-03 12:44] LABS: C-Reactive Protein < 0.50 mg/dL (<or=0.5)
[2024-06-03 12:55] LABS: ALT 26 U/L (14-59); AST 28 U/L (15-37); Albumin 3.6 g/dL (3.4-5.0); Alkaline Phosphatase 111 U/L (46-116); Anion Gap 3.5 mmol/L (3-11); BUN 7 mg/dL (7-18); Bilirubin, Total 0.4 mg/dL (0.2-1.0); CO2 32.5 mmol/L (21.0-32.0); CREATININE 0.7 mg/dL (0.55-1.02); Calcium 11.3 mg/dL (8.5-10.1); Chloride 105 mmol/L (98-107); Estimated GFR 103.35 (mL/min/1.73m2); Glucose 90 mg/dL (74-106); Sodium 141 mmol/L (136-145); Total Protein 7.1 g/dL (6.4-8.2)
[2024-06-03 13:15] LABS: Vitamin D 25 Total 25 ng/mL (30-100)
[2024-06-03 21:55] LABS: Parathyroid Hormone,Intact 62.6 pg/mL (19.0-88.0)
== END 2024-06-03 10:38 | disposition home or self-care (01) ==
LOC: LBO 10:38
PROVIDERS: Internal Medicine; PCP Physician Assistant Medical; Visit Provider Nurse Practitioner Family
DX: M19.90 Unspecified osteoarthritis, unspecified site (principal); Z79.899 Other long term (current) drug therapy; E55.9 Vitamin D deficiency, unspecified; E21.3 Hyperparathyroidism, unspecified
CPT/HCPCS: 36415; 80053; 82306; 85652; 83970; 85025; 86140

== ENCOUNTER 2024-06-24 09:08 | Outpatient (CLI) | payer BC, SELFPAY ==
[2024-06-24 09:28] LABS: ESR 8 mm/hr (0-30)
[2024-06-24 09:29] LABS: Abs Immature Grans 0.02 10^3/uL (0.0-0.06); Absolute Basophil Count 0.06 10^3/uL (0.0-0.2); Absolute Eosinophil Count 0.13 10^3/uL (0.0-0.7); Absolute Lymphocyte Count 0.97 10^3/uL (1.2-3.4); Absolute Monocyte Count 1.17 10^3/uL (0.1-0.8); Absolute Neutrophil Count 4.02 10^3/uL (1.2-6.7); Basophils % 0.9 %; HCT 39.5 % (36.0-46.0); Immature Grans % 0.3 %; Lymphocytes % 15.2 %; MCH 30.8 pg (27.0-33.0); MCHC 32.9 % (32.0-36.0); MCV 94 fL (80-95); MPV 10.7 fL (8.0-11.0); Monocytes % 18.4 %; Neutrophils % 63.2 %; Platelet Count 246 10^3/uL (130-400); RBC 4.22 10^6/uL (3.93-5.22); RDW 13.6 % (11.7-14.6); RDW-SD 45.7 fL; WBC 6.37 10^3/uL (4.4-10.8)
[2024-06-24 09:57] LABS: ALT 32 U/L (14-59); AST 33 U/L (15-37); Albumin 3.8 g/dL (3.4-5.0); Alkaline Phosphatase 108 U/L (46-116); Anion Gap 6.4 mmol/L (3-11); BUN 9 mg/dL (7-18); Bilirubin, Total 0.5 mg/dL (0.2-1.0); C-Reactive Protein < 0.50 mg/dL (<or=0.5); CO2 27.6 mmol/L (21.0-32.0); CREATININE 0.7 mg/dL (0.55-1.02); Calcium 10.5 mg/dL (8.5-10.1); Chloride 104 mmol/L (98-107); Estimated GFR 103.35 (mL/min/1.73m2); Glucose 97 mg/dL (74-106); Sodium 138 mmol/L (136-145); Total Protein 7.2 g/dL (6.4-8.2)
== END 2024-06-24 09:09 | disposition home or self-care (01) ==
LOC: LBO 09:09
PROVIDERS: PCP Physician Assistant Medical; Visit Provider Nurse Practitioner Family
DX: M19.90 Unspecified osteoarthritis, unspecified site (principal); Z79.899 Other long term (current) drug therapy
CPT/HCPCS: 36415; 80053; 85652; 85025; 86140

== ENCOUNTER 2024-08-09 04:21 | Outpatient (CLI) | payer BC, SELFPAY ==
[2024-08-09 09:43] LABS: HCT 38.4 % (36.0-46.0); HGB 12.9 g/dL (11.2-15.7); MCHC 33.6 % (32.0-36.0); MCV 92 fL (80-95); MPV 10.4 fL (8.0-11.0); Platelet Count 249 10^3/uL (130-400); RBC 4.16 10^6/uL (3.93-5.22); RDW 13.8 % (11.7-14.6); RDW-SD 45.9 fL; WBC 7.78 10^3/uL (4.4-10.8)
[2024-08-09 10:14] LABS: Anion Gap 4.3 mmol/L (3-11); BUN 11 mg/dL (7-18); CO2 30.7 mmol/L (21.0-32.0); CREATININE 0.6 mg/dL (0.55-1.02); Calcium 9.3 mg/dL (8.5-10.1); Chloride 102 mmol/L (98-107); Estimated GFR 107.26 (mL/min/1.73m2); Glucose 78 mg/dL (74-106); Potassium 3.7 mmol/L (3.5-5.1); Sodium 137 mmol/L (136-145)
== END 2024-08-09 04:22 | disposition home or self-care (01) ==
PROVIDERS: PCP Physician Assistant Medical; Visit Provider Student in an Organized Health Care Education/Training Program
DX: M06.9 Rheumatoid arthritis, unspecified (principal); M23.92 Unspecified internal derangement of left knee; Z01.818 Encounter for other preprocedural examination
CPT/HCPCS: 36415; 80048; 85027

== ENCOUNTER 2024-08-09 09:03 | Outpatient (CLI) | payer BC, SELFPAY ==
--- NOTE | 2024-08-09 08:15 | DI.RAD_ITS ---
Exam(s) XR KNEE LT 1V XR STANDING ALIGNMENT XR KNEE RT 1V EXAM: XR STANDING ALIGNMENT and bilateral XR knee 1 V CLINICAL HISTORY: bilat TKs. TECHNIQUE: 2D digital imaging was performed. Six images were obtained. COMPARISON: CR XR KNEE LT 3V AP,LAT,JOSELIN from 08/29/2020 CR XR KNEE RT 2V AP,LAT from 12/23/2023 CR XR KNEE LT 2V AP,LAT from 12/23/2023 FINDINGS: BONES: The hips are well maintained. In the left knee, there is moderate narrowing of the femoral ti bial joints, lateral greater than medial. Osteophytes are also present, particularly in the posterio r patella. There is a joint effusion present. In the right knee, there is moderate narrowing of the lateral femoral tibial joint. Osteophytes are seen both laterally and the posterior patella. There is a small joint effusion. Subchondral cysts are seen in the patella articular surface. The ankles are well maintained.There is no significant leg length discrepancy. SOFT TISSUE: Normal. IMPRESSION: Moderate osteoarthritis of the knees bilaterally. DATA REPOSITORY: RADIATION DOSE DELIVERED:
== END 2024-08-09 09:04 | disposition home or self-care (01) ==
LOC: DIORS 09:04
PROVIDERS: PCP Physician Assistant Medical; Referring Provider Physician Assistant Medical; Visit Provider Physician Assistant
DX: M06.9 Rheumatoid arthritis, unspecified (principal); M17.0 Bilateral primary osteoarthritis of knee
CPT/HCPCS: 73560; 77073

== ENCOUNTER 2024-08-17 16:22 | Observation (INO) | payer BC, SELFPAY ==
[2024-08-17] VITALS (27 sets, daily range): BP systolic 72–118; BP diastolic 42–79; PULSE 67–97; RESP 10–22; TEMP 36.1–36.9; O2SAT 96–100; BMI 28.3
[2024-08-17] MEDS: Acetaminophen 500 MG TAB 1000 MG PO ×2 (10:26→20:10)
[2024-08-17] MEDS: Celecoxib 200 MG CAP 400 MG PO (10:26)
[2024-08-17] MEDS: Gabapentin 300 MG CAP PO ×2 (10:26→20:10)
[2024-08-17] MEDS: Lactated Ringers 1,000 ML 80 ML IV (10:44)
--- NOTE | 2024-08-17 11:14 | W.ANESPRE ---
General Info Date of Service Date Performed: 08/17/24 Height: 5 ft 9 in Weight: 87.1 kg Body Mass Index (BMI): 28.3 Surgical Procedure: Operation Date: 08/17/24 14:20 Proposed Procedure Side Surgeon p Knee Total Arthroplasty Bilateral Aguila Cohen MD Actual Procedure Side Surgeon p Knee Total Arthroplasty Bilateral Aguila Cohen MD Pre-Op Diagnosis Post-Op Diagnosis Bilateral knee DJD Meds Allergies and Home Medications Allergies Allergy/AdvReac Type Severity Reaction Status Date / Time ketoconazole Allergy Severe Unknown Verified 08/17/24 10:09 adalimumab (From Humira) Allergy Intermediate Skin Rash Verified 08/17/24 10:09 sulfasalazine Allergy Intermediate Skin Rash Verified 08/17/24 10:09 Home Medication ?Medication ?Instructions ?Recorded folic acid 1 mg tablet 1 mg PO DAILY 04/29/24 methotrexate sodium 25 mg/mL 12.5 mg subcut QWEEK 04/29/24 injection solution rituximab 10 mg/mL IV 04/29/24 concentrate,intravenous (Rituxan) sertraline 100 mg tablet 100 mg PO DAILY 04/29/24 cholecalciferol (vitamin D3) 100 100 mcg PO DAILY 08/09/24 mcg (4,000 unit) tablet acetaminophen 500 mg tablet 1,000 mg (2 x 500 mg) PO Q8H PRN 08/17/24 pain #90 tabs aspirin 81 mg tablet,delayed 81 mg PO BID 30 days #60 tabs 08/17/24 release celecoxib 200 mg capsule (Celebrex) 200 mg PO BID PRN #60 caps 08/17/24 dexamethasone 4 mg tablet 4 mg PO DAILY #2 tabs 08/17/24 docusate sodium 100 mg capsule 100 mg PO BID #28 caps 08/17/24 (Colace) gabapentin 300 mg capsule 300 mg PO QHS #14 caps 08/17/24 oxycodone 5 mg tablet 5 mg PO Q4H PRN #18 tabs 08/17/24 pantoprazole 40 mg tablet,delayed 40 mg PO DAILY #14 tabs 08/17/24 release Current Visit Medications: Current Medications Generic Name Dose Route Start Last Admin Trade Name Freq PRN Reason Stop Dose Admin Acetaminophen 1,000 mg 08/17/24 06:00 08/17/24 10:26 Acetaminophen 500 Mg Tab PO 08/17/24 23:59 1,000 mg PREOP DORA Administration Acetaminophen 1,000 mg 08/17/24 14:00 Acetaminophen 500 Mg Tab PO 09/16/24 13:59 TID DORA Aspirin 81 mg 08/17/24 20:00 Aspirin E.C. 81 Mg Tabec PO 09/16/24 19:59 BID DORA Celecoxib 400 mg 08/17/24 06:00 08/17/24 10:26 Celecoxib 200 Mg Cap PO 08/17/24 23:59 400 mg PREOP DORA Administration Celecoxib 200 mg 08/17/24 20:00 Celecoxib 200 Mg Cap PO 09/16/24 19:59 BID DORA Docusate Sodium 100 mg 08/17/24 09:35 Docusate Sodium 100 Mg Cap PO 09/16/24 09:34 BID PRN PRN Constipation Folic Acid 1 mg 08/18/24 08:30 Folic Acid 1 Mg Tab PO 09/17/24 08:29 DAILY DORA Gabapentin 300 mg 08/17/24 06:00 08/17/24 10:26 Gabapentin 300 Mg Cap PO 08/17/24 23:59 300 mg PREOP DORA Administration Gabapentin 300 mg 08/17/24 20:00 Gabapentin 300 Mg Cap PO 09/16/24 19:59 HS DORA Hydromorphone HCl 0.5 mg 08/17/24 07:33 Hydromorphone 2 Mg/Ml Syr IVP 09/16/24 07:32 Q2H PRN PRN Ringer's Solution 1,000 mls @ 80 mls/hr 08/17/24 06:00 08/17/24 10:44 IV 08/17/24 23:59 80 mls/hr INFUSION DORA Administration Cefazolin Sodium/Dextrose 2 gm in 50 mls @ 100 mls/hr 08/17/24 06:00 Ancef Duplex IVPB 08/17/24 23:59 PREOP DORA Tranexamic Acid/Sodium Chloride 1,000 mg in 100 mls @ 600 mls/hr 08/17/24 06:00 IVPB 08/17/24 23:59 PREOP DORA Tranexamic Acid/Sodium Chloride 1,000 mg in 100 mls @ 600 mls/hr 08/17/24 06:00 IVPB 08/17/24 23:59 DIRECTED DORA Cefazolin Sodium/Dextrose 1 gm in 50 mls @ 100 mls/hr 08/17/24 08:00 Ancef Duplex IVPB 08/18/24 00:29 Q8H DORA IV Miscellaneous Supplies 1 each 08/17/24 06:00 Iv Access IV 08/17/24 23:59 DIRECTED DORA Ondansetron HCl 4 mg 08/17/24 09:35 Ondansetron 4 Mg/2 Ml Vial IVP 09/16/24 09:34 Q6H PRN PRN Nausea Oxycodone HCl 0 mg 08/17/24 07:33 Oxycodone 5 Mg Tab PO 09/16/24 07:32 Q3H PRN PRN Pain Pantoprazole Sodium 40 mg 08/18/24 07:30 Pantoprazole 40 Mg Tabcr PO 09/17/24 07:29 DAILY@0730 DORA Polyethylene Glycol 17 gm 08/17/24 09:35 Polyethylene Glycol 3350 17 Gm Packet PO 09/16/24 09:34 BID PRN PRN Constipation Sertraline HCl 100 mg 08/18/24 08:30 Sertraline 100 Mg Tab PO 09/17/24 08:29 DAILY DORA Sodium Chloride 0 ml 08/17/24 06:00 Normal Saline Flush 10 Ml Syr IV 08/17/24 23:59 PRN PRN Sodium Chloride 0 ml 08/17/24 06:00 Normal Saline 10 Ml Vial IJ 08/17/24 23:59 DIRECTED PRN Sterile Water 0 ml 08/17/24 06:00 Water,Injection,Sterile 10 Ml Vial IJ 08/17/24 23:59 DIRECTED PRN Tranexamic Acid 1,300 mg 08/17/24 07:33 Tranexamic Acid 650 Mg Tab PO 09/16/24 07:32 ONCE PRN postoperative PFSH Active Problems Active Problems: Problem Status Onset Code Rheumatoid arthritis involving left knee Acute M06.9 Rheumatoid arthritis of right knee Acute M06.9 Internal derangement of left knee Acute M23.92 Rheumatoid arthritis flare Acute M06.9 Bilateral carpal tunnel syndrome Acute G56.03 Medical History Medical History Low back pain Surgical History Surgical History H/O parathyroidectomy 07/13/24 History of tubal ligation Hx of section x4 Tobacco Smoking/Tobacco Use Status: Never Alcohol Alcohol Intake: never Substance Use Substance use: Never Substance use type: does not use Vital Signs and Lab Results Vital Signs Most Recent Vital Signs in EMR: Most Recent Vital Signs Temp Pulse Resp BP Pulse Ox 36.4 C L 79 16 118/79 100 08/17/24 10:00 08/17/24 10:00 08/17/24 10:00 08/17/24 10:00 08/17/24 10:00 Point of Care Results Point of Care Results: POC- Test(urine) Negative 08/17/24 10:59 Lab Results Blood Type / Crossmatch: No Data to Display Complete Blood Count: White Blood Count 7.78 10^3/uL (4.4-10.8) 08/09/24 09:37 Red Blood Count 4.16 10^6/uL (3.93-5.22) 08/09/24 09:37 Hemoglobin 12.9 g/dL (11.2-15.7) 08/09/24 09:37 Hematocrit 38.4 % (36.0-46.0) 08/09/24 09:37 Platelet Count 249 10^3/uL (130-400) 08/09/24 09:37 Complete Metabolic Panel: Sodium 137 mmol/L (136-145) 08/09/24 09:37 Potassium 3.7 mmol/L (3.5-5.1) 08/09/24 09:37 Chloride 102 mmol/L (98-107) 08/09/24 09:37 Carbon Dioxide 30.7 mmol/L (21.0-32.0) 08/09/24 09:37 BUN 11 mg/dL (7-18) 08/09/24 09:37 Creatinine 0.6 mg/dL (0.55-1.02) 08/09/24 09:37 Est GFR (CKD-EPI 2020) 107.26 (mL/min/1.73m2) 08/09/24 09:37 Calcium 9.3 mg/dL (8.5-10.1) 08/09/24 09:37 Glucose 78 mg/dL (74-106) 08/09/24 09:37 Liver Function Panel: No Data to Display Coagulation Panel: No Data to Display Cardiac Panel: No Data to Display Arterial Blood Gas: No Data to Display Venous Blood Gas: No Data to Display Pancreas Panel: No Data to Display Thyroid Panel: No Data to Display Infectious Disease: No Data to Display Blood Cultures: No Data to Display Toxicology Panel: No Data to Display Panel: No Data to Display Anesthesia Assessment and Plan Anesthesia History Personal History: No History of Anesthesia Complications Family History: No Family History of Anesthesia Complications Exercise Tolerance Exercise Tolerance: Metabolic Equivalents>4 Pertinent Negatives Pertinent Negatives: No Symptoms of GERD, No Major Cardiovascular Symptoms or Complaints, No Major Pulmonary Symptoms or Complaints and No History of CVA/TIA Cardiac & Pulmonary Exam Cardiac Exam: Normal S1/S2 Heart Sounds Pulmonary Exam: Clear Bilateral Breath Sounds Implantable Cardiac Device Does patient have a Pacemaker or an ICD?: No Airway Exam Known Difficult Airway: No Mallampati Class: 2 Mouth Opening: Normal (> 3cm) Thyromental Distance: Greater than 3 cm Neck Range of Motion: Full ROM Neck Circumference: Normal Teeth Condition: Normal Dentition ASA Classification ASA Score: ASA 2 Emergency Case?: No NPO Status NPO Status: NPO Clears >2 hours, Solids >8 hours Status Status: Negative HCG Anesthesia Plan Resuscitation Status: Full Code Anesthesia Technique: Spinal Anesthesia Airway Planned: Natural Airway Pain Management: Surgeon and patient request nerve block Monitors Used: Standard Monitors
--- NOTE | 2024-08-17 12:26 | W.ANESNERVE ---
Nerve Block Single Injection Procedure Date and Time Date Performed: 08/17/24 Procedure Start: 12:04 Location Where Procedure Performed Procedure Location: Day Surgery Unit Reason Performed: Postoperative Analgesia Requesting Provider: Aguila Cohen Timeout Performed Timeout Performed: Yes Monitoring Used ECG, Blood Pressure, SpO2 and See EMR for corresponding vital signs Sterility Sterility: Hand Hygiene, Surgical Cap, Surgical Mask, Sterile Gloves, Eye Protection and Chlorhexidine Sedation Given During Procedure Sedation Given (Indicate Dose Given): Versed IV Dose:: 2 mg Patient Mental Status Patient Mental Status: Sedate with meaningful communication Nerve Block 1st Nerve Block: Laterality: Bilateral Block Type: Adductor Canal Ultrasound Image Saved?: Yes Needle / Catheter Used: 120mm SonoPlex II Local Anesthetic Bolus (Indicate Dose Given): Lidocaine used for local infiltration of skin, Injected in 3-5ml increments after negative blood aspiration, Half of Total block solution given into each side, Bupivacaine 0.25% Dose:: 30 ml and Exparel Dose:: 20 ml Additives (Indicate Dose Given): None Ultrasound: Sterile probe cover and gel used Nerve Stimulator: Supplement to Ultrasound use and No twitch or parasthesia noted < 0.5 mA Paresthesia: None Procedure Tolerated: No Complications and Patient tolerated well Procedure Outcome: Successful Performed By: Clovis Cox Supervised By: Oumar Russ
[2024-08-17] MEDS: ceFAZolin 2 GM/50 ML BAG IVPB (12:47)
[2024-08-17] MEDS: TRANEXAMIC ACID/SOD. CHL. 1,000 MG/100 ML BAG 600 MG IVPB ×2 (12:57→14:05)
--- NOTE | 2024-08-17 15:34 | ROE_ITS ---
Operative Note Operative Note PRE-OP DIAGNOSIS: Bilateral Knee Arthritis POST-OP DIAGNOSIS: same PROCEDURE: Bilateral Knee Arthroplasty SURGEON: Aguila Cohen INJECTION MOLDING MACHINE OPERATOR: Baylee Kline ANESTHESIA TYPE: Spinal Refer to Anesthesia Record ESTIMATED BLOOD LOSS: 450 PATHOLOGY: none sent TOURNIQUET TIME: 0 COMPLICATIONS: None Patient was transported to: PACU Patient's condition: stable Implants: LEFT: 1. Depuy Attune Cementless Cruciate Retaining Femoral Component, Size 6 Narrow 2. Depuy Attune Cementless Fixed Bearing Tibial Component, Size 5 3. Depuy Attune 6x6 CR/FB Poly 4. Depuy Attune Patellar Component, Size 35 RIGHT: 1. Depuy Attune Cementless Cruciate Retaining Femoral Component, Size 6 Narrow 2. Depuy Attune Cementless Fixed Bearing Tibial Component, Size 5 3. Depuy Attune 6x6 CR/FB Poly 4. Depuy Attune Patellar Component, Size 35 Indications: I have seen Leanne in clinic for symptoms of knee arthritis, confirmed with radiographic findings. She has exhausted nonoperative methods and was having significant limitations in daily function and desired better function and less pain. I discussed the technical details of a knee replacement. I explained the risks of the procedure to include, but not limited to, bleeding, infection, pain, stiffness, fracture, damage to nerves and vessels, damage to muscles and tendons, loosening, need for repeat procedure, blood clot and cardiopulmonary demise. Despite these risks, Leanne elected to proceed. Findings: There was significant arthritis throughout both knees characterized by areas of erosion, particularly in the trochlea. There is also significant mount of syno vitis and inflammatory subchondral cysts seen in both knees.. Procedure Description: Leanne was greeted in the preoperative holding area where the correct side was identified and marked. The consent was reviewed with the patient and signed. The history and physical was updated. All questions were answered. Preoperative medications were administered: Acetaminophen 1000mg, Celebrex 400mg, and Gabapentin 300mg. Bilateral adductor canal block was then administered by the anesthesia team in the [facility]. Leanne was taken back to the operating room. A spinal anesthestic was then administered. The patient was placed into the supine position on the operating room table. A nonsterile tourniquet was placed high onto the leg but only used for cementing. Posts were placed for positioning during the procedure. All bony prominences were well padded. Prophylactic antibiotics in the form of Cefazolin were administered. 1g of Tranxemic Acid was given intravenously within 30 minutes of incision. Both legs were then prepped with Chloraprep and draped in a standard fashion with impervious stockinette. A second prep with Chloraprep was performed prior to application of Iodine impregnated skin protection. A timeout to confirm correct identity, side and site, procedure, allergies, anesthesia, and medical concerns was performed. LEFT KNEE: With the knee in some flexion, a midline incision was made overlying the knee. Full thickness skin flaps were raised once the extensor mechanism was encountered. These were raised medially and laterally. Any bleeding was controlled with electrocautery. Once the extensor mechanism was fully exposed, a medial parapatellar arthrotomy was performed in a flexed position. All bleeding from the arthrotomy and the geniculate arteries was coagulated. A medial subperiosteal peel was performed with electrocautery to the midcoronal plane. The fat pad was removed while keeping the patellar tendon protected. The anterior distal femur synovium was removed for later visualization. The ACL and PCL were resected and the anterior horn of the lateral meniscus was transected. The knee was then flexed with the patella everted. Large osteophytes from the tibia were removed. Large osteophytes from the femur were removed. There was extensive synovitis seen throughout the knee. This had a inflammatory necrotic appearance. There was invagination of the synovium into the tissue of the knee itself eroding through the cartilage of the trochlea and a stripe across the medial and lateral femur. An aggressive synovectomy was performed throughout. Using a step drill, and based on preoperative templating, the femoral canal was entered. This was done with a step drill without any difficulty. The intramedullary distal femoral cut guide was inserted, set to a 6 degree valgus cut and 9mm cut thickness. The distal femoral cut guide was then held in position and pinned. With the soft tissues protected, the distal cut was performed. This was passed over a few times to ensure a planar cut. I then turned attention to the tibia. The extramedullary guide was placed onto the leg. The distal aspect was slid medial to adjust for position of center of ankle and stay in line with shaft of the tibia. Approximately 3-5 degrees of posterior slope was kept in the proxima l cutting guide. The center of the guide was aligned with the PCL. The stylus was used to assess cut thickness. The lateral side, most involved side, was set for a 6mm cut. This was then held in position and pinned into place with 2 additional pins and a cross pin for stability. The medial and lateral collateral ligaments were protected and the cut was performed. With this completed, it was assessed and noted to be of appropriate dimensions. The guide was removed. A spacer block was inserted and the knee was brought into extension. The 6mm spacer block provided full extension, without hyperextension and with stability of both the medial and lateral collateral ligaments was assessed. The pins from the femur and the tibia were then removed. The distal femur was then sized. The anterior stylus was placed onto the lateral ridge of the anterior femur. This indicated a size 6 narrow femur. The external rotation of the guide was adjusted to 0 degrees to match the epicondylar axis, perpendicular to Joslyn?s line. The 4-in-1 cutting guide was the placed. The posterior medial femur cut was evaluated and appeared of good thickness. The spacer block was inserted underneath the cutting guide and stability was confirmed in 90 degrees of flexion. An cierra wing was used to confirm appropriate position of the anterior cut to avoid notching. This cutting guide was ensured to be flush on the cut surface and then pinned into place with headed pins. While protecting the soft tissues, quad tendon, and collateral ligaments, the anterior and posterior cuts were performed with a saw. The central two pins were removed and the posterior and anterior chamfers were cut next. The notch-cutting guide was placed. This was pinned to lateralize the femoral component as much as possible while keeping it flush on the cut surface. This was then pinned into position. A reciprocating saw was used to make the notch cut. A rasp smoothed the cut surfaces. The medial and lateral menisci were removed. A trial femoral component was then inserted, impacted down to the cut surfaces, and the lug holes were drilled. A provisional trial tibial component was placed and the knee was brought through range of motion. There was noted to be excellent extension and flexion. There was no significant instability. The patella was tracking without thumbs. A size 6mm polyethylene component provided the best range of motion and stability with less than 2mm gapping with medial and lateral stress and full extension without significant hyperextension. The tibial cut surface was fully exposed. The tibia was then sized as a 5. The tibia had been previously marked during trialing to correspond to the center of the tibial component to help with rotation. The trial was aligned to this sukh, approximately rotated to the medial 1/3rd of the tibial tubercle. The trial was pinned into place. The tibia was prepared with a reamer and a keel punch and lug holes. The knee was then brought into extension and the patella was measured as 22mm. Using the patellar clamp and cut guide, this was resected to a flat surface with at least 13mm of thickness remaining. The size 35mm patella fit the best. This was oriented and then clamped into position. The lugs were drilled. The trial components were removed. The final components were opened on the back table. The periosteal and capsular tissues, especially posteriorly, around the knee were then systematically injected with a periarticular cocktail consisting of 246mg of Ropivacaine, 0.5mg of Epinephrine, 0.08mg of Clonidine, and 30mg of Ketorolac, diluted to 100cc. On the back table, with the implants opened, the cement was mixed. One batch of high viscosity cement was prepared with vacuum assistance. After the cement was ready a small amount was placed on the cut surface of the patella and the patellar button was clamped into position and held. While the cement was hardening, the cementless knee components were placed. Starting with the tibial component, the tibia was subluxed anteriorly and the lug holes of the component were lined up. The tibia was then impacted with an impactor and mallet until the tibial component was in contact with the tibia. The final polyethylene component was inserted. Then, the femoral component was inserted. The lug holes were aligned and the component was impacted into position. The knee was irrigated with Surgiphor Betadine solution. This was allowed to sit in the knee for 3 minutes and then it was irrigated out with saline. After the cement had finally cured, approximately 15min, the clamp was removed from the patella and the knee was taken through range of motion. The patella was tracking with a no-thumbs technique. The trial poly was removed and the real component inserted. The capsule was then reapproximated with a No. 1 Vicryl at multiple locations. The capsule was finally closed with a No. 2 Stratafix, barbed suture. The second dosing of 1g TXA was started. Deep tissues were then reapproximated with 0 Vicryl and 2-0 Vicryl. The skin was closed with a running 3-0 Monocryl in a subcuticular fashion. RIGHT KNEE: With the knee in some flexion, a midline incision was made overlying the knee. Full thickness skin flaps were raised once the extensor mechanism was encountered. These were raised medially and laterally. Any bleeding was controlled with electrocautery. Once the extensor mechanism was fully exposed, a medial parapatellar arthrotomy was performed in a flexed position. All bleeding from the arthrotomy and the geniculate arteries was coagulated. A medial subperiosteal peel was performed with electrocautery to the midcoronal plane. The fat pad was removed while keeping the patellar tendon protected. The anterior distal femur synovium was removed for later visualization. The ACL and PCL were resected and the anterior horn of the lateral meniscus was transected. The knee was then flexed with the patella everted. Large osteophytes from the tibia were removed. Large osteophytes from the femur were removed. Once again, there was notable synovitis seen throughout the knee. This was sharply debrided and resected. Using a step drill, and based on preoperative templating, the femoral canal was entered. This was done with a step drill without any difficulty. The intram edullary distal femoral cut guide was inserted, set to a 6 degree valgus cut and 9mm cut thickness. The distal femoral cut guide was then held in position and pinned. With the soft tissues protected, the distal cut was performed. This was passed over a few times to ensure a planar cut. I then turned attention to the tibia. The extramedullary guide was placed onto the leg. The distal aspect was slid medial to adjust for position of center of ankle and stay in line with shaft of the tibia. Approximately 3-5 degrees of posterior slope was kept in the proximal cutting guide. The center of the guide was aligned with the PCL. The stylus was used to assess cut thickness. The lateral side, most involved side, was set for a 4mm cut. This was then held in position and pinned into place w ith 2 additional pins and a cross pin for stability. The medial and lateral collateral ligaments were protected and the cut was performed. With this completed, it was assessed and noted to be of appropriate dimensions. The guide was removed. A spacer block was inserted and the knee was brought into extension. The 6mm spacer block provided full extension, without hyperextension and with stability of both the medial and lateral collateral ligaments was assessed. The pins from the femur and the tibia were then removed. The distal femur was then sized. The anterior stylus was placed onto the lateral ridge of the anterior femur. This indicated a size 6 narrow femur. The external rotation of the guide was adjusted to 0 degrees to match the epicondylar axis, perpendicular to Joslyn?s line. The 4-in-1 cutting guide was the placed. The posterior medial femur cut was evaluated and appeared of good thickness. The spacer block was inserted underneath the cutting guide and stability was confirmed in 90 degrees of flexion. An cierra wing was used to confirm appropriate position of the anterior cut to avoid notching. This cutting guide was ensured to be flush on the cut surface and then pinned into place with headed pins. While protecting the soft tissues, quad tendon, and collateral ligaments, the anterior and posterior cuts were performed with a saw. The central two pins were removed and the posterior and anterior chamfers were cut next. The notch-cutting guide was placed. This was pinned to lateralize the femoral component as much as possible while keeping it flush on the cut surface. This was then pinned into position. A reciprocating saw was used to make the notch cut. A rasp smoothed the cut surfaces. The medial and lateral menisci were removed. A trial femoral component was then inserted, impacted down to the cut surfaces, and the lug holes were drilled. A provisional trial tibial component was placed and the knee was brought through range of motion. There was noted to be excellent extension and flexion. There was no significant instability. The patella was tracking without thumbs. A size 6mm polyethylene component provided the best range of motion and stability with less than 2mm gapping with medial and lateral stress and full extension without significant hyperextension. The tibial cut surface was fully exposed. The tibia was then sized as a 5. The tibia had been previously marked during trialing to correspond to the center of the tibial component to help with rotation. The trial was aligned to this sukh, approximately rotated to the medial 1/3rd of the tibial tubercle. The trial was pinned into place. The tibia was prepared with a reamer and a keel punch and lug holes. The knee was then brought into extension and the patella was measured as 22mm. Using the patellar clamp and cut guide, this was resected to a flat surface with at least 13mm of thickness remaining. The size 35 patella fit the best. This was oriented and then clamped into position. The lugs were drilled. The trial components were removed. The final components were opened on the back table. The periosteal and capsular tissues, especially posteriorly, around the knee were then systematically injected with a periarticular cocktail consisting of 246mg of Ropivacaine, 0.5mg of Epinephrine, 0.08mg of Clonidine, and 30mg of Ketorolac, diluted to 100cc. On the back table, with the implants opened, the cement was mixed. One batch of high viscosity cement was prepared with vacuum assistance. After the cement was ready a small amount was placed on the cut surface of the patella and the patellar button was clamped into position and held. While the cement was hardening, the cementless knee components were placed. Starting with the tibial component, the tibia was subluxed anteriorly and the lug holes of the component were lined up. The tibia was then impacted with an impactor and mallet until the tibial component was in contact with the tibia. The final polyethylene component was inserted. Then, the femoral component was inserted. The lug holes were aligned and the component was impacted into position. The knee was i rrigated with Surgiphor Betadine solution. This was allowed to sit in the knee for 3 minutes and then it was irrigated out with saline. After the cement had finally cured, approximately 15min, the clamp was removed from the patella and the knee was taken through range of motion. The patella was tracking with a no-thumbs technique. The capsule was then reapproximated with a No. 1 Vicryl at multiple locations. The capsule was finally closed with a No. 2 Stratafix, barbed suture. Deep tissues were then reapproximated with 0 Vicryl and 2-0 Vicryl. The skin was closed with a running 3-0 Monocryl in a subcuticular fashion. Both incisions were then reinforced with skin glue. A Mepilex silver dressing was applied along with a [id number] DEANGELO wrap to both knees. A CryoCuff was applied. Leanne was transferred to the hospital bed without difficulty an suffering no apparent complication. Leanne has a good prognosis. Physical therapy will start today and without restrictions, weight-bearing as tolerated. Aspirin 81mg BID will be used for DVT prophylaxis. Date of Procedure: 08/17/24
--- NOTE | 2024-08-17 16:00 | W.ANESPOSTOP ---
Postoperative Evaluation Date, Time and Location Date Performed: 08/17/24 Time Performed: 16:00 Patient Location: PACU Vital Signs Most Recent Imported Vital Signs: Most Recent Vital Signs Temp Pulse Resp BP Pulse Ox 36.4 C L 89 14 101/48 L 97 08/17/24 15:53 08/17/24 15:56 08/17/24 15:56 08/17/24 15:56 08/17/24 15:56 Pain Score Most Recent Pain Score: Most Recent Pain Score Pain Level 0 08/17/24 15:53 Assessment Mental Status: Awake (Alert & Oriented to Patient Baseline) Airway and Respiratory Function: Patent airway with normal (patient baseline) respiratory exam Cardiovascular Function: Hemodynamically Stable Hydration Status: Adequately Hydrated Nausea & Vomiting: No Nausea or Vomiting Pain: Pain is tolerable per patient (spinal still waning) Peripheral Nerve Block: Regional nerve block not resolved at time of post operative discharge
--- NOTE | 2024-08-17 17:44 | W.PC.ACHO ---
Registration Status: Primary Language: Preferred Language: Medical / Surgical History (Last Reviewed 08/17/24 @ 11:15 by Clovis Cox CRNA) Low back pain (Last Reviewed 08/17/24 @ 11:15 by Clovis Cox CRNA) H/O parathyroidectomy History of tubal ligation Hx of section Most Recent Vital Signs Temperature 36.5 C 08/17/24 16:12 Temperature Source Tympanic 08/17/24 15:08 Pulse 74 08/17/24 16:10 Pulse Rhythm Regular 08/17/24 15:08 Pulse 71 08/17/24 16:11 Respiratory Rate 20 08/17/24 16:11 Respiratory Effort Normal, Non-Labored 08/17/24 15:08 Respiratory Depth Normal 08/17/24 15:08 Respiratory Pattern Normal 08/17/24 15:08 Blood Pressure 105/57 L 08/17/24 16:10 Blood Pressure Mean 69 08/17/24 16:10 Blood Pressure Position Sitting 08/17/24 11:57 Pulse Oximetry 97 08/17/24 16:10 Respiratory End-tidal CO2 36 08/17/24 16:11 Oxygen Delivery Method Room Air 08/17/24 16:12 Oxygen Flow Rate 0 08/17/24 15:08 Pain Level 0 08/17/24 16:12 Comment Patient tolerated procedure well. Patient denies pain, metallic taste in mouth or ringing in her ears. 08/17/24 11:57 Allergies ketoconazole Allergy (Severe, Verified 08/17/24 10:09) Unknown PT. STATES I HAD A CHEMICAL BURN adalimumab (From Humira) Allergy (Intermediate, Verified 08/17/24 10:09) Skin Rash sulfasalazine Allergy (Intermediate, Verified 08/17/24 10:09) Skin Rash Active Medications Generic Name Dose Route Start Last Admin Trade Name Freq PRN Reason Stop Dose Admin Acetaminophen 1,000 mg 08/17/24 06:00 08/17/24 10:26 Acetaminophen 500 Mg Tab PO 08/17/24 23:59 1,000 mg PREOP DORA Administration Celecoxib 400 mg 08/17/24 06:00 08/17/24 10:26 Celecoxib 200 Mg Cap PO 08/17/24 23:59 400 mg PREOP DORA Administration Gabapentin 300 mg 08/17/24 06:00 08/17/24 10:26 Gabapentin 300 Mg Cap PO 08/17/24 23:59 300 mg PREOP DORA Administration Ringer's Solution 1,000 mls @ 80 mls/hr 08/17/24 06:00 08/17/24 16:05 IV 08/17/24 23:59 80 mls/hr INFUSION DORA Infusion Cefazolin Sodium/Dextrose 2 gm in 50 mls @ 100 mls/hr 08/17/24 06:00 08/17/24 12:57 Ancef Duplex IVPB 08/17/24 23:59 Infused PREOP DORA Infusion Tranexamic Acid/Sodium Chloride 1,000 mg in 100 mls @ 600 mls/hr 08/17/24 06:00 08/17/24 13:07 IVPB 08/17/24 23:59 Infused PREOP DORA Infusion Tranexamic Acid/Sodium Chloride 1,000 mg in 100 mls @ 600 mls/hr 08/17/24 06:00 08/17/24 14:05 IVPB 08/17/24 23:59 600 mls/hr DIRECTED DORA Administration IV IV Catheter Type [Left Hand] Peripheral IV IV Catheter Gauge [Left Hand] 20 Diet Orders Category Date Time Status Regular/Normal [DIET] Nutrition 08/17/24 Lunch Active [id number] Documentation POC Urine Test Start: 08/17/24 10:59 Freq: Status: Active Protocol: Activity Type Activity Date Activity User E-sign Co-sign Detail Recorded Client Recorded Date Recorded By Document 08/17/24 10:59 MARIYA [id number] 08/17/24 10:59 MARIYA Intake and Output - 24 Hour Total 05/03/24 09:34 thru 08/17/24 16:12 Intake Total 1900 Output Total 450 Balance 1450 Weight 87.1 kg Intake: IV 1000 Oral 900 Output: Estimated Blood Loss 450 Other: Urine Appearance Clear Emesis Description None Falls Risk Assessment History of Falls No History 08/17/24 15:08 Contributing Factors No Factors 08/17/24 15:08 Ambulatory Aids Uses ambulatory device 08/17/24 15:08 Tubes/Lines W/no contributing factors 08/17/24 15:08 Gait Evaluation W/no contributing factors 08/17/24 15:08 Fall Total Score 35 08/17/24 15:08 Level of Risk Moderate Risk 08/17/24 15:08 v v v v v v v v v Sending and/or Receiving Nurses: Please use comment section below to note any information pertinent to the patient hand-off not included above. Information / Comments: Report received from:Pacu at 1503, patient is alert oriented s/p bilateral knee surgery History of RA.
[2024-08-17] MEDS: ceFAZolin 1 GM/50 ML BAG IVPB (18:22)
[2024-08-17] MEDS: Aspirin E.C. 81 MG TABEC PO (19:47)
[2024-08-17] MEDS: Celecoxib 200 MG CAP PO (20:10)
[2024-08-18] MEDS: ceFAZolin 1 GM/50 ML BAG IVPB ×2 (02:58→10:56)
[2024-08-18] MEDS: Normal Saline Flush 10 ML SYR IV ×2 (02:58→06:25)
[2024-08-18] MEDS: oxyCODONE 5 MG TAB PO ×4 (04:08→16:09)
[2024-08-18] MEDS: HYDROmorphone 2 MG/ML SYR 0.5 MG IVP (06:24)
[2024-08-18 07:12] LABS: HCT 29.8 % (36.0-46.0); HGB 9.9 g/dL (11.2-15.7); MCH 30.8 pg (27.0-33.0); MCHC 33.2 % (32.0-36.0); MCV 93 fL (80-95); MPV 10.9 fL (8.0-11.0); Platelet Count 200 10^3/uL (130-400); RBC 3.21 10^6/uL (3.93-5.22); RDW 13.8 % (11.7-14.6); RDW-SD 46.5 fL
[2024-08-18 07:28] LABS: Anion Gap 8.8 mmol/L (3-11); BUN 14 mg/dL (7-18); CO2 27.2 mmol/L (21.0-32.0); CREATININE 0.8 mg/dL (0.55-1.02); Calcium 8.2 mg/dL (8.5-10.1); Chloride 101 mmol/L (98-107); Estimated GFR 88.05 (mL/min/1.73m2); Glucose 168 mg/dL (74-106); Potassium 3.5 mmol/L (3.5-5.1); Sodium 137 mmol/L (136-145)
[2024-08-18 07:32] VITALS: BP 104/59; PULSE 77; RESP 12; TEMP 35.5; O2SAT 100
[2024-08-18] MEDS: Acetaminophen 500 MG TAB 1000 MG PO ×3 (07:51→20:28)
[2024-08-18] MEDS: Aspirin E.C. 81 MG TABEC PO ×2 (07:51→20:27)
[2024-08-18] MEDS: Pantoprazole 40 MG TABCR PO (07:52)
[2024-08-18] MEDS: Sertraline 100 MG TAB PO (07:52)
[2024-08-18] MEDS: Folic Acid 1 MG TAB PO (07:52)
[2024-08-18] MEDS: Celecoxib 200 MG CAP PO ×2 (07:52→20:28)
--- NOTE | 2024-08-18 08:45 | PDOC.CMDIS ---
Date of service: 08/18/24 Time of Service: 08:45 LACE Index Scoring Tool Questions: Length of Stay (in days): 1 Was the patient admitted via the E.D.?: No E.D. Visits: 0 Answers: Total Score: 1 Risk of Readmission: Low Risk Care Management Discharge Plan Reason for Hospitalization: Bilateral knee DJD Discharge Plan: Leanne will be discharged home today. She will follow up with her community providers, surgical team, outpatient PT, and plan of care. Leanne be transport via private vehicle by family. Patient/Family Education Needs: Review of discharge instructions, activity, limitations, and plan of care. Discuss Ask Me Three. Services Needed at Discharge: Outpatient Therapy SDOH Health Related Social Needs: No Data to Display
[2024-08-18] MEDS: Lactated Ringers 1,000 ML 1000 ML IV (09:33)
[2024-08-18] MEDS: Midodrine 2.5 MG TAB 5 MG PO ×3 (09:41→20:27)
--- NOTE | 2024-08-18 09:55 | PT.INIE ---
PT Notes Visit Reasons: Bilateral knee DJD Physical Therapy Inpatient Initial Evaluation Date: 08/18/2024 Referring Doctor: Baylee Kline NP; Dr Cohen PT Orders: PT CONSULT: s/p Ortho Surgery Precautions: WBAT BLE, Activity as tolerated. Patient Profile/Admitting Diagnosis: Leanne is a 53 yo female presenting s/p elective B TKA by Dr Cohen on 08/18/2024. Pt is now post op day 1. PMHX: Rheumatoid arthritis involving left knee (Acute) Rheumatoid arthritis of right knee (Acute) Internal derangement of left knee (Acute) Rheumatoid arthritis flare (Acute) Bilateral carpal tunnel syndrome (Acute) S/P L ECTR: 08/09/2019 S/P R ECTR: 08/23/2019 Medical History (Updated 04/29/24 @ 10:51 by GERRY Simon) Low back pain Surgical History History of tubal ligation Hx of section Social History/Home Situation: resides in multi level home with stairs to enter with rail. Pt reports FOS with rail to her main bedroom and bath. She is employed multimedia producer. and is independent with all ADL, home management , driving, finances, mealprep and shopping. Her is available to help as needed. Equipment Owned/DME: forearm crutches, FWW Subjective: Pt reports she did not sleep during the night and has been up to walk the loop with the nurses twice. She notes after the second walk she felt a like she was going to pass out but did not tell anyone and just laid down. She reports she can feel when it is going to happen. She states she gets really warm then clammy then she starts to loose her hearing. Objective: [] General Observation: young female semireclined in bed with cryocuffs to B knee, visiting Mental Status: A+ Ox4 , cooperative , motivated , able to follow all instructions, agreeable to participate. Pain:B knee 4-5 with pain meds Vitals: Orthostatic set: Supine 101/65 pulse 73 sit : 60/33 pulse 82 stand : unable d/t symptomatic ROM: [] Right Upper Extremity: WNL Left Upper Extremity: WNL Right Lower Extremity:hip and ankle WNL knee 0-95 degrees Left Lower Extremity: hip and ankle WNL knee 0-100 degrees Strength: [] Right Upper Extremity:5/5 Left Upper Extremity:5/5 Right Lower Extremity:Hip flexion: 3- /5; hip abduction: 3 /5; hip extension: 3-/5; knee extension: 3 /5; knee flexion: 2+ /5 ankle DF: 3 /5 ; ankle PF: 3 /5, quad set without compensation, SLR without lag through shortened range Left Lower Extremity:Hip flexion: 3 /5; hip abduction: 3 /5; hip extension: 3/5; knee extension: 3 /5; knee flexion: 3- /5 ankle DF: 3 /5 ; ankle PF: 3 /5, strong quad set without compensation, SLR without lag through shortened range Sensation: intact to light touch and pain B LE Bed Mobility/Transfers: [] Supine to sit independent Sit to stand CGA with cues to push up from surface Stand to sit CGA Bed to chair CGA with FWW Gait: amb with FWW CGA 200 feet with swing through pattern with reduced step length on the right, Pt demonstrates reduced knee flexion B LE R>L during swing phase. Balance: [] Static Sitting: Normal Dynamic Sitting:good Static Standing: Good Dynamic Standing: Fair Special Tests: [] Mobility Limitations Standardized Measure [] [facility] AM-PAC 6 clicks Basic Mobility Inpatient Short Form: [] Raw Score:18 CMS Score: 46.58% Informed Consent/Education: Patient instructed in purpose of PT consult. Treatment: 42113 Packet containing TKA exercise protocol has been given to patient. Education and training on initial set of exercises that can be done at home have been completed with patient. 82835: transfer training with and without FWW step turn transfers, short distance functional mobility. CGA/SBA level Assessment: Leanne is a 53 yo female presenting s/p B TKA , orthostatic hypotension limiting her tolerance to be out of bed. Pt initially able to ambulate 200 feet then became symptomatic quickly . Pt placed in supine and vitals taken BP noted 95/68 HR 78. Nurse notified and came to assess pt including a set of Orthostatic vitals as stated. Pt alert throughout pt did note loss of hearing in her left ear which resolved as her BP improved in supine. Pt also becomes symptomatic when seated. notified of BPs and ordered IV Fluids and Midodrine. Patient presents with clinical signs and symptoms consistent with current/admitting diagnoses that have resulted to mobility limitations, gait instability, generalized weakness, and impairment of motor control as demonstrated by the following impairment level findings: 1. Decreased strength to B knee major muscle groups 2. Impaired standing balance 3. Limitation of joint range of motion in B knee L>R 4. Orthostatic hypotension 5. pain B knees Impairments are contributing to the following functional limitations: 1. Inability to safely ambulate without assistive device and assistance 2. Increase completion time for mobility ADL performance 3. Increased fall risk 4. inability to perform stairs 5 impaired transfer skills Patient is assessed as moderate complexity based on the following: History: 53-year-old female with impairment level findings, functional limitations, and past medical history as indicated above Examination: Demonstrable impairment in strength, balance, and mobility level with underlying impairments and functional limitations as documented above Presentation: evolving Decision Making: moderate Goals: 1. independent transfers with FWW 2. SBA ambulation with FWW 200 feet 3. CGA 5 steps with rail and crutch to safely enter and exit home 4. Independent HEP per TKA protocol Plan of Care/Treatment Plan: PT evaluation and 1-2 treatment session only for functional mobility training using recommended AD and for HEP instruction. DISCHARGE RECOMMENDATIONS: home with HEP and Outpatient PT as scheduled when medically appropriate for discharge. TREATMENT CODE/TIME:12171, 17563, 96108/ [id number] Thank you for the opportunity to participate in the care of this patient. Angelia Burch PT [facility]
--- NOTE | 2024-08-18 13:28 | CHAPLAIN ---
Leanne was resting in bed waiting to work with PT again when I visited. She had double knee replacements yesterday and hopes to be going home later today. Her is with her. They [place] very [place] the hospital and is looking forward to recovering at home and being on her deck and in her pool.
--- NOTE | 2024-08-18 15:41 | PGE_ITS ---
Date of Service Date of service: 08/18/24 Time of Service: 15:42 Assessment and Plan Assessment and plan (1) History of total bilateral knee replacement: Status: Acute (2) Acute blood loss anemia: Status: Acute Assessment and plan: Leanne is a 53-year-old female who is status post bilateral knee replacements. She did have some blood loss during surgery, approximately 450 cc, and likely will have some blood loss after. She was doing well but still seems to be symptomatic. Therefore, I will continue with midodrine 5 mg 3 times daily to help support her blood pressure. I also will check a hemoglobin if she has any other drop of her hemoglobin consider 1 unit blood transfusion. Continue with try to mobilize as tolerated. Likely discharge to home tomorrow after continue to recover from her recent surgery. Subjective Subjective Interval history since last seen: I saw Leanne earlier in the morning and she was making good progress. She is able straight leg raise and she was feeling good. She had stood out of the bed and walked a few times with nursing with minimal symptoms. However, throughout the day today she had a harder time with any ambulation with postural hypotension. She continued to be symptomatic with orthostatic hypotension and therefore I went back to check on her. She denies any significant pain while in bed. She denies any pain limitation. She denies any chest pain or shortness of breath. She does feel lightheaded and dizzy when she tried to stand up and walk. Exam Narrative Exam Narrative: No acute distress. Alert and orient x 3. Bilateral knee dressings are clean dry and intact. She is able to weakly straight leg raise on both sides. Objective Last Vital Signs Temp 35.5 C L 08/18/24 07:32 Pulse 77 08/18/24 07:32 Resp 12 08/18/24 07:32 BP 104/59 L 08/18/24 07:32 Pulse Ox 100 08/18/24 07:32 Laboratory Results - last 24 hr 08/18/24 06:53 WBC 14.20 H RBC 3.21 L Hgb 9.9 L Hct 29.8 L MCV 93 MCH 30.8 MCHC 33.2 RDW 13.8 Plt Count 200 MPV 10.9 Sodium 137 Potassium 3.5 Chloride 101 Carbon Dioxide 27.2 Anion Gap 8.8 BUN 14 Creatinine 0.8 Est GFR (CKD-EPI 2020) 88.05 Glucose 168 H Calcium 8.2 L Time Spent with Patient Time Spent with Patient: <25 minutes Time was spent: preparing to see the patient(eg.review tests), ordering medications,tests, procedures, referring, communicating with other health progressive care manager, indepentently interpreting results, counseling the patient and care coordination
--- NOTE | 2024-08-18 15:53 | PDOC.CMIN ---
Care Management Initial Assmt Initial Assessment Reason for Hospitalization: Bilateral Knee DJD Functional Status/Living Situation Patient Presentation: Leanne was lying in bed, visiting with her in the room. Leanne received bilateral knee replacements and continued to be symptomatic with orthostatic hypotension, throughout the day; Per MD, she will stay and discharge tomorrow. She is pleasant and willing to engage in conversation. She is currently living in [facility] with her , in their home. Leanne stated, that while she is recovery she has had many of friends and family that offered to help support her. Leanne states she doesn't require a work note, at this time. Leanne will begin outpatient PT 08/31/24. CM will continue to follow. Town of Residence: [facility] Resides with: Spouse Significant Other/Family: Local Natural Supports: , friends, family Employment Status: Employed Instrumental Activities of Daily Living (ADLs): Independent Medications Medication Management: No Issues/Barriers identified Advance Directives Advance Directives: Do you have an Advance Directive: N 05/05/24 16:30 AD On File at [facility]: N 05/05/24 16:30 Date Asked 08/08/24 08/09/24 08:35 AD Date Reviewed COLST On File at [facility] COLST Date Scanned Code Status Resuscitation Status Full Code Portal Pt does not currently have a portal and education provided: Yes Insurance Coverage/Financial Issues Insurance: BC/BS Out of State Care Team Visit Care Team Role Provider Type GERRY Sherwood Primary Care Provider [facility] [employer] [facility] [employer] OUT SETTER [facility] Other Providers OTHER Aguila Cohen MD Admit Provider [facility] STAFF PHYSICIAN Attending Provider Discharge Potential Discharge Needs: PT Evaluation and PCP F/U Appt Anticipated Barriers to Discharge: Medical Status Patient/Family Education Needs: Review discharge instructions, discuss Ask Me Three Transportation: Private vehicle Plan: Anticipate, Leanne will be discharged home today. She will follow up with her community providers, surgical team, outpatient PT, and plan of care. Leanne be transport via private vehicle by family. Social Determinants of Health Screening Social Determinants of health last assessed in clinic: 08/18/24 Will the Patient Participate in the Screening?: Yes Do you worry about having a steady place to live?: yes What is your living situation today?: I have housing today, but am worried about losing it Problems where you live: no known problems In the past 12 months, have you had to go without electric, gas, oil or water in your home?: no 1. Within the past 12 months, we worried whether our food would run out before we got money to buy more.: Never true 2. Within the past 12 months, the food we bought just didn't last and we didn't have money to get more.: Never true Has lack of transportation kept you from medical appointments or from doing things needed for daily living?: no Has anyone in your life made you feel unsafe or unsupported?: no How hard is it for you to pay for the very basics like food, housing, medical care, and heating? Would you say it is:: Not hard at all Do you want help finding or keeping work or a job?: I do not need or want help If for any reason you need help with day-to-day activities such as bathing, preparing meals, shopping, managing finances, etc., do you get the help you need?: I don?t need any help How often do you feel lonely or isolated from those around you?: Never Do you speak a language other than Ecuadorean at home?: No Does the patient want assistance with any of the above?: No Health Related Social Needs Health related social needs: housing instability, housed, with risk of homelessness ([phone]) PFSH All Active Problems (Updated 08/18/24 @ 09:05 by Garth Portillo RN) Acute blood loss anemia (Acute) History of total bilateral knee replacement (Acute 08/17/24) Rheumatoid arthritis of right knee (Acute) Rheumatoid arthritis flare (Acute) Bilateral carpal tunnel syndrome (Acute) S/P L ECTR: 08/09/2019 S/P R ECTR: 08/23/2019 Medical History Low back pain Surgical History H/O parathyroidectomy 07/13/24 History of tubal ligation Hx of section x4 Social History Smoking/Tobacco Use Status: Never Smoking risk assessment performed?: Yes Alcohol Intake: never Drug use: Never Substance use type: does not use Housing: house current occupation: entry level paralegal Current gender identity: female Do you feel safe at home: Yes Do you feel safe in your relationship?: Yes Readmission Within the Past 30 Days Yes or No: No
[2024-08-18 16:02] LABS: HCT 27.9 % (36.0-46.0); HGB 9.2 g/dL (11.2-15.7)
--- NOTE | 2024-08-18 16:09 | PT.INTREAT ---
PT Notes Visit Reasons: Bilateral knee DJD Inpatient Physical Therapy Treatment Note [facility] Date: 08/18/2024 PRECAUTIONS:Fall risk, orthostatic, WBAT BLE SUBJECTIVE: Pt reports she just got back from the bathroom and feels better than this morning but not normal OBJECTIVE: pt semireclined in bed with visiting ? PAIN: 3/10 with pain meds VITALS: ?supine : 99/50 HR 70 sit: 100/50 HR 83 stand: 89/46 HR 101 ; pt began to feel hot and clammy returned to supine with HOB flat after 5 min BP 95/62 HR 79 Therapeutic Activities (46436t[]): Direct one-on-one instruction in dynamic activities to improve functional performance. ? BED MOBILITY/TRANSFERS? Supine-sit: SBA? Sit-supine: SBA ? Sit-stand: CGA with cues for hand placement to push up ? Stand-sit: CGA cues to reach back? Provided skilled cues and instruction on performance and technique throughout. ? Therapeutic Exercises (21447n3): Direct one-on-one instruction in therapeutic exercises to develop strength, endurance, range of motion and flexibility. ? Exercises ? per TKA Protocol: supine BLE x 10 reps QS, glute sets, Ankle pumps, SAQ with 3 sec hold , heelslide SLR 2 sets 5 reps with initiate with quad set . Provided skilled instruction in proper exercise performance ASSESSMENT:? Pt unable to tolerate OOB functional mobility d/t postural, orthostatic hypotension. Pt noted with reduced quad control Right >left this pm as compared to initial eval in am. notified of pt poor tolerance to OOB . Will continue to monitor and progress with stair training as able when BP is stable. PLAN: continue with POC until medically appropriate for discharge TREATMENT CODE/TIME: 80965,/ [id number] DISCHARGE RECOMMENDATION: home with HEP and outpatient PT as scheduled when medically appropriate
[2024-08-18 16:22] VITALS: BP 103/58; PULSE 68; TEMP 36.4; O2SAT 99
[2024-08-18 17:04] VITALS: BP 105/54; PULSE 69; TEMP 36; O2SAT 96
[2024-08-18 19:39] VITALS: BP 109/52; PULSE 73; RESP 19; TEMP 36.6; O2SAT 97
[2024-08-18] MEDS: Gabapentin 300 MG CAP PO (20:28)
[2024-08-18 22:11] LABS: HCT 28.2 % (36.0-46.0); HGB 9.2 g/dL (11.2-15.7)
[2024-08-18 22:58] VITALS: BP 104/54; PULSE 66; RESP 18; TEMP 36.2; O2SAT 94
[2024-08-19 03:11] VITALS: BP 101/49; PULSE 71; RESP 19; TEMP 36.5; O2SAT 98
[2024-08-19 06:43] LABS: Anion Gap 5.9 mmol/L (3-11); BUN 10 mg/dL (7-18); CO2 28.1 mmol/L (21.0-32.0); CREATININE 0.5 mg/dL (0.55-1.02); Calcium 8.5 mg/dL (8.5-10.1); Chloride 107 mmol/L (98-107); Estimated GFR 112.08 (mL/min/1.73m2); Glucose 107 mg/dL (74-106); Potassium 3.7 mmol/L (3.5-5.1); Sodium 141 mmol/L (136-145)
[2024-08-19 07:14] LABS: HCT 30.8 % (36.0-46.0); HGB 10.3 g/dL (11.2-15.7); MCH 30.8 pg (27.0-33.0); MCHC 33.4 % (32.0-36.0); MCV 92 fL (80-95); Platelet Count 189 10^3/uL (130-400); RBC 3.34 10^6/uL (3.93-5.22); RDW 14.2 % (11.7-14.6); RDW-SD 47.7 fL
[2024-08-19] MEDS: Pantoprazole 40 MG TABCR PO (07:25)
[2024-08-19 07:33] VITALS: BP 107/52; PULSE 83; RESP 12; TEMP 37; O2SAT 99
[2024-08-19] MEDS: Midodrine 2.5 MG TAB 5 MG PO (08:08)
[2024-08-19] MEDS: oxyCODONE 5 MG TAB PO (08:08)
[2024-08-19] MEDS: Acetaminophen 500 MG TAB 1000 MG PO (08:08)
[2024-08-19] MEDS: Aspirin E.C. 81 MG TABEC PO (08:08)
[2024-08-19] MEDS: Sertraline 100 MG TAB PO (08:08)
[2024-08-19] MEDS: Celecoxib 200 MG CAP PO (08:09)
[2024-08-19] MEDS: Folic Acid 1 MG TAB PO (08:09)
--- NOTE | 2024-08-19 09:51 | W.PM.DS.N ---
Date of service: 08/18/24 Time of Service: 07:15 Discharge Plan Disposition Patient Disposition: Home Condition: Good Discharge Details Reason For Visit: Bilateral knee DJD Admit Date/Time: 08/17/24 16:22 Admit Provider: Aguila Cohen Attending Provider: Aguila Cohen Primary Care Provider: Florencia Henson Hospital Course Hospital Course: Patient was admitted to the medical/surgical floor following the procedure. The surgery was tolerated well without any notable medical, surgical, or anesthetic complications. Mobilization began postoperatively. She was voiding spontaneously. Vitals were stable. Physical therapy worked with the patient and was cleared for discharge home. No acute medical issues. Pain was controlled on oral regimen. Home Meds and New Rx's Prescriptions: New celecoxib [Celebrex] 200 mg capsule 200 mg PO BID PRNQty: 60 0RF Rx Instructions: Take one tablet twice daily for pain and inflammation aspirin 81 mg tablet,delayed release (DR/EC) 81 mg PO BID 30 Days Qty: 60 0RF acetaminophen 500 mg tablet 1,000 mg PO Q8H PRN Qty: 90 0RF Rx Instructions: Take two tablets up to every 8 hours as needed for pain pantoprazole 40 mg tablet,delayed release (DR/EC) 40 mg PO DAILY Qty: 14 0RF dexamethasone 4 mg tablet 4 mg PO DAILY Qty: 2 0RF Rx Instructions: Take one tablet once daily for two days docusate sodium [Colace] 100 mg capsule 100 mg PO BID Qty: 28 0RF gabapentin 300 mg capsule 300 mg PO QHS Qty: 14 0RF Rx Instructions: Take one tablet at bedtime oxycodone 5 mg tablet 5 mg PO Q4H PRNQty: 18 0RF Rx Instructions: Take one tablet up to every 4 hours as needed for severe postoperative pain Continued cholecalciferol (vitamin D3) 100 mcg (4,000 unit) tablet 100 mcg PO DAILY sertraline 100 mg tablet 100 mg PO DAILY Rituxan 10 mg/mL concentrate IV methotrexate sodium 25 mg/mL solution 12.5 mg subcut QWEEK folic acid 1 mg tablet 1 mg PO DAILY Discharge Instructions Additional Instructions: Total Knee Discharge Instructions Activity: The most important activity is to walk and to work on gentle motion (both flexion and extension). You should try to take short walks a few times a day. It is important that when resting you work on keeping the knee straight. Avoid putting a pillow behind the knee as this will encourage flexion. Work on range of motion exercises as provided by Physical Therapy. - Start outpatient physical therapy within 2 weeks. - You should wear the DINA hose on both legs for 2 weeks. You may remove these at night. You may also use any compression sock in place of the DINA hose. - Utilize [employer] to review exercises, see videos on exercises and obtain basic information pertaining to your surgery and your recovery. Dressing: Remove the Naseem wrap by 2 days after your surgery and put on the DINA stocking given to you from the hospital. Keep the surgical dressing (underneath the NASEEM wrap) in place for at least one week. After the first week it may be removed and replaced with light gauze and tape or nothing. The wound and dressing may get wet after 3 days but avoid soaking the dressing or otherwise it will need to be changed. Many people prefer covering the dressing with cling wrap (saran wrap) to minimize it from getting soaked. If it gets wet, just pat dry. If it starts to peel off then it will need to be changed. Medications: - You should take Tylenol and anti-inflammatory Celebrex as your primary pain control medications. If the Celebrex is too expensive or not covered, please call the office for another alternative (Advil/Ibuprofen or Naproxen/Aleve) - You have been prescribed a stronger pain medication Oxycodone for breakthrough pain, take as needed as prescribed. If the 5mg is not enought, you may take 2 tablets (10mg) but then call Dr. Cohen and/or staff to discuss refills. - You have also been prescribed a stomach acid reduction agent Pantoprozole to help reduce stomach acid and reflux. - You have been prescribed Gabapentin to take at night for restlessness and nerve pain. - You will be taking Aspirin 81mg twice a day for DVT prevention unless instructed otherwise. - You have also been prescribed Decadron to take to control post-operative nausea and pain. You will start this tomorrow. - If you have constipation you should take Colace (which has been prescribed) or Miralax (which is available [id number]). It takes most people 3-4 days to have a bowel movement. Follow-up: 2 weeks If you have any acute concerns or questions, please do not hesitate to contact the office at [phone]. You may contact Dr. Cohen with any questions after hours through the hospital at [phone] or on his cell phone at [phone]. Referrals: Aguila Cohen MD [ [facility] STAFF PHYSICIAN] - Activity:: Activity as Tolerated Equipment/Supplies:: Walker Diet:: As Tolerated Discharge Orders Discharge Orders: Discharge Order (Routine); Ordered 08/18/24 Ordered By: Aguila Cohen DS: Summary Time Spent with Patient providing and/or coordinating discharge services: Less than 30 minutes Status at Discharge Functional status at discharge: uses cane/walker Overall status at discharge: patient is progressing back to baseline Mental Status: mental status grossly normal Speech and Movement: speech and movement normal Mood: congruent mood Affect: normal affect Quality:SDOH Health Related Social Needs: No Data to Display Exam Narrative Exam Narrative: Laying in the bed. NAD. AAOx3. Bilateral knee dressings c/d/i. Able to SLR but weakly. +ADF/APF/EHL/FHL bilaterally SILT DP/SP/Tib. Psych Mental Status: mental status grossly normal Speech and Movement: speech and movement normal Mood: congruent mood Affect: normal affect PFSH All Active Problems Rheumatoid arthritis involving left knee (Acute) Rheumatoid arthritis of right knee (Acute) Internal derangement of left knee (Acute) Rheumatoid arthritis flare (Acute) Bilateral carpal tunnel syndrome (Acute) S/P L ECTR: 08/09/2019 S/P R ECTR: 08/23/2019 Medical History Low back pain Surgical History H/O parathyroidectomy 07/13/24 History of tubal ligation Hx of section x4 Social History Smoking/Tobacco Use Status: Never Smoking risk assessment performed?: Yes Alcohol Intake: never Drug use: Never Substance use type: does not use Housing: house current occupation: bankruptcy legal assistant Current gender identity: female Do you feel safe at home: Yes Do you feel safe in your relationship?: Yes
--- NOTE | 2024-08-19 10:18 | DSE_ITS ---
Date of service: 08/19/24 Time of Service: 09:35 DS: Diagnosis Discharge Diagnosis (1) History of total bilateral knee replacement: Status: Acute (2) Acute blood loss anemia: Status: Acute Discharge Plan Disposition Patient Disposition: Home Condition: Good Discharge Details Reason For Visit: Bilateral knee DJD Admit Date/Time: 08/17/24 16:22 Admit Provider: Aguila Cohen Attending Provider: Aguila Cohen Primary Care Provider: Florencia Henson Hospital Course Hospital Course: Patient was admitted to the medical/surgical floor following the procedure. The surgery was tolerated well without any notable medical, surgical, or anesthetic complications. Mobilization began postoperatively. She was voiding spontaneously. Vitals were stable. Physical therapy worked with the patient and was cleared for discharge home. No acute medical issues. Pain was controlled on oral regimen. Home Meds and New Rx's Prescriptions: New docusate sodium [Colace] 100 mg capsule 100 mg PO BID Qty: 28 0RF gabapentin 300 mg capsule 300 mg PO QHS Qty: 14 0RF Rx Instructions: Take one tablet at bedtime docusate sodium [Colace] 100 mg Capsule 100 mg PO BID PRN PRN (Reason: Constipation) Qty: 14 0RF gabapentin 300 mg Capsule 300 mg PO HS Qty: 30 0RF Continued cholecalciferol (vitamin D3) 100 mcg (4,000 unit) tablet 100 mcg PO DAILY sertraline 100 mg tablet 100 mg PO DAILY Rituxan 10 mg/mL concentrate IV methotrexate sodium 25 mg/mL solution 12.5 mg subcut QWEEK folic acid 1 mg tablet 1 mg PO DAILY No Action oxycodone 5 mg tablet 5 mg PO Q4H MDD 6 tabs PRN (Reason: pain) Qty: 18 0RF Rx Instructions: Take one tablet up to every 4 hours as needed for severe postoperative pain acetaminophen 500 mg tablet 1,000 mg PO Q8H PRN Qty: 90 0RF Rx Instructions: Take two tablets up to every 8 hours as needed for pain aspirin 81 mg tablet,delayed release (DR/EC) 81 mg PO BID 30 Days Qty: 60 0RF celecoxib [Celebrex] 200 mg capsule 200 mg PO BID PRN (Reason: pain) Qty: 60 0RF Rx Instructions: Take one tablet twice daily for pain and inflammation pantoprazole 40 mg tablet,delayed release (DR/EC) 40 mg PO DAILY Qty: 14 0RF Discharge Instructions Additional Instructions: Total Knee Discharge Instructions Activity: The most important activity is to walk and to work on gentle motion (both flexion and extension). You should try to take short walks a few times a day. It is important that when resting you work on keeping the knee straight. Avoid putting a pillow behind the knee as this will encourage flexion. Work on range of motion exercises as provided by Physical Therapy. - Start outpatient physical therapy within 2 weeks. - You should wear the DINA hose on both legs for 2 weeks. You may remove these at night. You may also use any compression sock in place of the DINA hose. - Utilize [employer] to review exercises, see videos on exercises and obtain basic information pertaining to your surgery and your recovery. Dressing: Keep the surgical dressing (Mepilex) in place for at least one week. After the first week it may be removed and replaced with light gauze and tape or nothing and leave in place. The wound and dressing may get wet after 3 days but avoid soaking the dressing or otherwise it will need to be changed. Many people prefer covering the dressing with cling wrap (saran wrap) to minimize it from getting soaked. If it gets wet, just pat dry. If it starts to peel off then it will need to be changed. Medications: - You should take Tylenol and anti-inflammatory Celebrex as your primary pain control medications. If the Celebrex is too expensive or not covered, please call the office for another alternative (Advil/Ibuprofen or Naproxen/Aleve) - You have been prescribed a stronger pain medication Oxycodone for breakthrough pain, take as needed as prescribed. If the 5mg is not enough, you may take 2 tablets (10mg) but then call Dr. Cohen and/or staff to discuss refills. - You have also been prescribed a stomach acid reduction agent Pantoprozole to help reduce stomach acid and reflux. - You have been prescribed Gabapentin to take at night for restlessness and nerve pain. - You will be taking Aspirin 81mg twice a day for DVT prevention unless instructed otherwise. - If you have constipation you should take Colace (which has been prescribed) or Miralax (which is available [id number]). It takes most people 3-4 days to have a bowel movement. Follow-up: 2 weeks If you have any acute concerns or questions, please do not hesitate to contact the office at [phone]. You may contact Dr. Cohen with any questions after hours through the hospital at [phone] or on his cell phone at [phone]. Stand Alone Forms: Nursing Discharge Form Referrals: Aguila Cohen MD [ [facility] STAFF PHYSICIAN, Orthopaedic Surgical] - 08/30/24 9:00 am Activity:: Activity as Tolerated Equipment/Supplies:: Walker Diet:: As Tolerated Discharge Orders Discharge Orders: Discharge Order (Routine); Ordered 08/19/24 Ordered By: Aguila Cohen DS: Summary Time Spent with Patient providing and/or coordinating discharge services: Less than 30 minutes Status at Discharge Functional status at discharge: uses cane/walker Overall status at discharge: patient is progressing back to baseline Mental Status: mental status grossly normal Speech and Movement: speech and movement normal Mood: congruent mood Affect: normal affect Quality:SDOH Health Related Social Needs: Health related social needs risk of homeless Exam Narrative Exam Narrative: Sitting in the chair. NAD. AAOx3. Bilateral knee with c/d/i dressings. Early ecchymosis is present. Weakly extends both knees. +ADF/APF/EHL/FHL. SILT DP/SP/Tib. Psych Mental Status: mental status grossly normal Speech and Movement: speech and movement normal Mood: congruent mood Affect: normal affect DS: Data Vitals/I&O Vitals and I&O: Vital Signs Temperature 37.0 C 08/19/24 07:33 Temperature Source Temporal Artery Scan 08/19/24 07:33 Pulse 83 08/19/24 07:33 Pulse Rhythm Regular 08/17/24 15:08 Pulse 71 08/17/24 16:11 Respiratory Rate 12 08/19/24 07:33 Respiratory Effort Normal, Non-Labored 08/17/24 15:08 Respiratory Depth Normal 08/17/24 15:08 Respiratory Pattern Normal 08/17/24 15:08 Blood Pressure 107/52 L 08/19/24 07:33 Blood Pressure Mean 70 08/19/24 07:33 Blood Pressure Position Sitting 08/17/24 11:57 Pulse Oximetry 99 08/19/24 07:33 Respiratory End-tidal CO2 36 08/17/24 16:11 Oxygen Delivery Method Room Air 08/19/24 07:33 Oxygen Flow Rate 0 08/19/24 07:33 Pain Level 9 08/19/24 08:08 Comment RN notified 08/19/24 07:33 Intake & Output 08/18/24 08/18/24 08/19/24 11:59 23:59 11:59 Intake Total 1100 / 1340 240 / 1340 Output Total 1700 / 2400 700 / 2400 Balance -600 / -1060 -460 / -1060 Intake: IV 1100 / 1100 Oral 240 / 240 Output: Urine 1700 / 2400 700 / 2400 Other: Urine Color Light Mary Yellow Urine Appearance Clear Clear Urine Odor Strong Comment pt states she had to move away from the hat to continue urinating Data Completed and Pending Labs on day of discharge: Labs from last 24 hours 08/19/24 08/18/24 08/18/24 06:04 21:59 19:32 WBC 10.50 RBC 3.34 L Hgb 10.3 L 9.2 L Hct 30.8 L 28.2 L MCV 92 MCH 30.8 MCHC 33.4 RDW 14.2 Plt Count 189 MPV 11.0 Sodium 141 Potassium 3.7 Chloride 107 Carbon Dioxide 28.1 Anion Gap 5.9 BUN 10 Creatinine 0.5 L Est GFR (CKD-EPI 2020) 112.08 Glucose 107 H Calcium 8.5 ABO/Rh O Positive Antibody Screen NEGATIVE 08/18/24 15:55 WBC RBC Hgb 9.2 L Hct 27.9 L MCV MCH MCHC RDW Plt Count MPV Sodium Potassium Chloride Carbon Dioxide Anion Gap BUN Creatinine Est GFR (CKD-EPI 2020) Glucose Calcium ABO/Rh Antibody Screen PFSH All Active Problems Acute blood loss anemia (Acute) History of total bilateral knee replacement (Acute 08/17/24) Rheumatoid arthritis of right knee (Acute) Rheumatoid arthritis flare (Acute) Bilateral carpal tunnel syndrome (Acute) S/P L ECTR: 08/09/2019 S/P R ECTR: 08/23/2019 Medical History Low back pain Surgical History H/O parathyroidectomy 07/13/24 History of tubal ligation Hx of section x4 Social History Smoking/Tobacco Use Status: Never Smoking risk assessment performed?: Yes Alcohol Intake: never Drug use: Never Substance use type: does not use Housing: house current occupation: certified paralegal Current gender identity: female Do you feel safe at home: Yes Do you feel safe in your relationship?: Yes Time Spent with Patient Time Spent with Patient: <45 minutes Time was spent: preparing to see the patient(eg.review tests) and counseling the patient
--- NOTE | 2024-08-19 10:58 | PT.INTREAT ---
PT Notes Visit Reasons: Bilateral knee DJD Inpatient Physical Therapy Treatment Note [facility] Date: 08/19/2024 PRECAUTIONS:Fall risk, orthostatic, WBAT BLE SUBJECTIVE: Pt reports she is feeling a little better today and wants to go home OBJECTIVE: pt semireclined in bed with visiting ? PAIN: 03/19 with pain meds VITALS: ?monitored by nursing Therapeutic Activities ([id number][]): Direct one-on-one instruction in dynamic activities to improve functional performance. ?1st session: ? ? BED MOBILITY/TRANSFERS? Supine-sit: independent ? Sit-supine: independent ? Sit-stand: SBA with cues for hand placement to push up ? Stand-sit: BSA cues to reach back? surface to surface x 6 trials step turn with FWW SBA Provided skilled cues and instruction on performance and technique throughout. ? Therapeutic Exercises (07809y1): Direct one-on-one instruction in therapeutic exercises to develop strength, endurance, range of motion and flexibility. ? Exercises ? per TKA Protocol: supine BLE x 10 reps QS, glute sets, Ankle pumps, SAQ with 3 sec hold , heelslide SLR 2 sets 5 reps with initiate with quad set . Provided skilled instruction in proper exercise performance 2nd Session: 22088: transfers with forearm crutches with SBA various surfaces 84502: ambulation with forearm crutches with SBA 200 feet 4 point gait pattern demonstrating reduced knee flexion during swing phase B knee, slight knee flexion at mid stance left>right, circumduction for foot clearance on left. - 3 4 steps? and 2 6 steps with rails CGA with continuous cues for sequencing step to pattern then 3 4 steps? and 2 6 steps with B forearm crutches CGA with continuous cues for sequencing step to pattern - able to provide CGA and cues appropriately for sequencing. ASSESSMENT:? Pt initially upon sitting at edge of bed in first session vomited 100cc undigested food. Nurse notified. Pt reported feeling better. She was able to tolerate sitting OOB to chair with intermittent elevation between sessions. At start of 2nd session she again vomited small under 50cc. Pt then again was able to ambulate and perform stairs with forearm crutches without episodes of hypotension. Per MD pt will discharge to home. Her is able to provide support. He is able to recognize her physical s/s of hypotension well as is Leanne. At end of 2nd session pt feeling very confident about discharge to home. Also reviewed and simulated car transfer technique of lowering seat back to allow for leg clearance as she is getting in and out of the car. PLAN: continue with POC until medically appropriate for discharge TREATMENT CODE/TIME: 1st session: 86166, 97081/ [id number] 2nd session: 49821, 64699/ [id number] DISCHARGE RECOMMENDATION: home with HEP and outpatient PT as scheduled when medically appropriate
--- NOTE | 2024-08-19 11:04 | PDOC.CMDIS ---
Date of service: 08/19/24 Time of Service: 11:04 LACE Index Scoring Tool Questions: Length of Stay (in days): 2 Was the patient admitted via the E.D.?: No E.D. Visits: 0 Answers: Total Score: 2 Risk of Readmission: Low Risk Care Management Discharge Plan Reason for Hospitalization: bilateral total knee replacements Discharge Plan: Leanne will be discharged home later today with no new services. She will f/u with Dr. Cohen on 08/30 and begin outpatient PT on 08/31. She will transport home in a private vehicle with her , and continue per her plan of care. Patient/Family Education Needs: Review of discharge instructions, activity, limitations, and discuss Ask me 3. SDOH Health Related Social Needs: Health related social needs risk of homeless
[2024-08-19 11:06] VITALS: BP 106/58; PULSE 87; RESP 16; TEMP 36.5; O2SAT 98
== END 2024-08-19 11:42 | disposition home or self-care (01) ==
LOC: MS 08-18 07:56
PROVIDERS: Admitting Provider Student in an Organized Health Care Education/Training Program; PCP Physician Assistant Medical; Visit Provider Student in an Organized Health Care Education/Training Program
PROC: 0SRC0JZ Replacement of Right Knee Joint with Synthetic Substitute, Open Approach (ICD-10-PCS; CPT 27447; principal; 2024-08-17 14:00)
DX: M17.0 Bilateral primary osteoarthritis of knee (principal); D62 Acute posthemorrhagic anemia; I95.1 Orthostatic hypotension; G89.18 Other acute postprocedural pain; M25.561 Pain in right knee; M25.562 Pain in left knee; E89.2 Postprocedural hypoparathyroidism; Z79.631 Long term (current) use of antimetabolite agent; M05.862 Other rheumatoid arthritis with rheumatoid factor of left knee; M05.861 Other rheumatoid arthritis with rheumatoid factor of right knee
CPT/HCPCS: 27447; 36415; 64447; 80048; 85027; 86850; 86900; 86901; 97110; 97116; 97162; 97530; 85014; 85018; C1776; G0378; J0665; J0666; J0690; J1100; J1171; J2003; J2250; J2371; J2405; J2704; J3475; J9260

== ENCOUNTER 2024-08-30 09:55 | Outpatient (CLI) | payer BC, SELFPAY ==
--- NOTE | 2024-08-30 08:45 | DI.RAD_ITS ---
Exam(s) XR KNEE LT 1V XR KNEE RT 1V XR STANDING ALIGNMENT EXAM: XR STANDING ALIGNMENT CLINICAL HISTORY: 1st post op S/P BILAT TKAs. TECHNIQUE: 2D digital imaging was performed. Standing AP views were performed from the pelvis through the ankles. COMPARISON: CR XR STANDING ALIGNMENT from 08/09/2024 CR XR KNEE LT 1V from 08/30/2024 CR XR KNEE RT 1V from 08/30/2024 FINDINGS: BONES: No acute fracture is present. No bony destructive lesion is seen. Leg length discrepancy: No significant overall leg length discrepancy. JOINTS: Knees: Bilateral total knee prostheses have been placed. The alignment is satisfactory. The ankle joints are unremarkable. The hip joints are unremarkable. SOFT TISSUE: Normal. IMPRESSION: Status post placement of bilateral total knee prostheses. No significant leg length discrepancy. DATA REPOSITORY: RADIATION DOSE DELIVERED:
== END 2024-08-30 09:56 | disposition home or self-care (01) ==
LOC: DIORS 09:55
PROVIDERS: PCP Physician Assistant Medical; Referring Provider Physician Assistant Medical; Visit Provider Student in an Organized Health Care Education/Training Program
DX: Z96.653 Presence of artificial knee joint, bilateral (principal)
CPT/HCPCS: 73560; 77073

== ENCOUNTER 2024-09-16 12:24 | Outpatient (CLI) | payer BC, SELFPAY ==
[2024-09-16 12:51] LABS: Abs Immature Grans 0.02 10^3/uL (0.0-0.06); ESR 16 mm/hr (0-30); HCT 33.6 % (36.0-46.0); HGB 11.0 g/dL (11.2-15.7); Immature Grans % 0.3 %; MCH 30.1 pg (27.0-33.0); MCHC 32.7 % (32.0-36.0); MCV 92 fL (80-95); MPV 10.3 fL (8.0-11.0); Platelet Count 301 10^3/uL (130-400); RBC 3.65 10^6/uL (3.93-5.22); RDW 14.2 % (11.7-14.6); RDW-SD 47.8 fL; WBC 6.37 10^3/uL (4.4-10.8)
[2024-09-16 13:37] LABS: ALT 34 U/L (14-59); AST 34 U/L (15-37); Albumin 3.6 g/dL (3.4-5.0); Alkaline Phosphatase 162 U/L (46-116); Anion Gap 9.7 mmol/L (3-11); BUN 11 mg/dL (7-18); Bilirubin, Total 0.5 mg/dL (0.2-1.0); CO2 25.3 mmol/L (21.0-32.0); Calcium 9.0 mg/dL (8.5-10.1); Chloride 101 mmol/L (98-107); Estimated GFR 106.60 (mL/min/1.73m2); Glucose 143 mg/dL (74-106); Potassium 3.9 mmol/L (3.5-5.1); Sodium 136 mmol/L (136-145); Total Protein 7.0 g/dL (6.4-8.2)
[2024-09-16 13:40] LABS: C-Reactive Protein < 0.50 mg/dL (<or=0.5)
== END 2024-09-16 12:25 | disposition home or self-care (01) ==
LOC: LBO 12:24
PROVIDERS: PCP Physician Assistant Medical; Visit Provider Nurse Practitioner Family
DX: M05.9 Rheumatoid arthritis with rheumatoid factor, unspecified (principal); Z79.899 Other long term (current) drug therapy
CPT/HCPCS: 36415; 80053; 85652; 85025; 86140

== ENCOUNTER 2025-02-16 00:53 | Outpatient (CLI) | payer BC, SELFPAY ==
[2025-02-16 07:59] LABS: Abs Immature Grans 0.02 10^3/uL (0.0-0.06); HCT 40.7 % (36.0-46.0); HGB 14.5 g/dL (11.2-15.7); Immature Grans % 0.4 %; MCH 33.2 pg (27.0-33.0); MCHC 35.6 % (32.0-36.0); MCV 93 fL (80-95); MPV 10.5 fL (8.0-11.0); Platelet Count 245 10^3/uL (130-400); RBC 4.37 10^6/uL (3.93-5.22); RDW 14.2 % (11.7-14.6); RDW-SD 48.0 fL; WBC 4.57 10^3/uL (4.4-10.8)
[2025-02-16 08:07] LABS: ESR 3 mm/hr (0-30)
[2025-02-16 08:13] LABS: C-Reactive Protein < 0.50 mg/dL (<=0.50)
[2025-02-16 08:14] LABS: ALT 23 U/L (10-49); AST 33 U/L (<34); Albumin 4.5 g/dL (3.2-5.0); Alkaline Phosphatase 91 U/L (46-116); Anion Gap 8.8 mmol/L (3-11); BUN 16 mg/dL (9-23); Bilirubin, Total 0.5 mg/dL (0.2-1.2); CO2 29.2 mmol/L (20.0-31.0); Calcium 9.0 mg/dL (8.3-10.6); Chloride 106 mmol/L (98-107); Glucose 101 mg/dL (74-106); Potassium 3.8 mmol/L (3.5-5.1); Sodium 144 mmol/L (136-145); Total Protein 7.3 g/dL (5.7-8.2)
[2025-02-16 09:31] LABS: Iron 62 ug/dL (50-170)
[2025-02-16 09:32] LABS: Vitamin D 25 Total 37 ng/mL (30-100)
[2025-02-16 09:33] LABS: Ferritin 22 ng/mL (7-271); TSH 3.99 uIU/mL (0.55-4.78)
[2025-02-16 09:34] LABS: Vitamin B12 696 pg/mL (211-911)
[2025-02-16 09:35] LABS: Folate 20.0 ng/mL (>5.38)
== END 2025-02-16 00:54 | disposition home or self-care (01) ==
PROVIDERS: PCP Physician Assistant Medical; Visit Provider Nurse Practitioner Family
DX: D64.9 Anemia, unspecified (principal); Z86.39 Personal history of other endocrine, nutritional and metabolic disease; M05.9 Rheumatoid arthritis with rheumatoid factor, unspecified; Z79.899 Other long term (current) drug therapy
CPT/HCPCS: 80053; 82306; 85652; 82607; 82728; 82746; 83540; 84439; 84443; 85025; 86140